=== PATIENT | male | born 1960 | race Two or more races ===

== ENCOUNTER 2025-04-06 08:07 | Inpatient (IN) | payer OTHER ==
[~2025-04-06] VITALS: Ht 180.3 cm; Wt 147.4 kg
[2025-04-06] VITALS (7 sets, daily range): BP systolic 147–153; BP diastolic 82–83; PULSE 63–77; RESP 13–18; TEMP 97.8–98.3; O2SAT 93–97
--- NOTE | 2025-04-06 09:18 | DVH ---
EXAM: XY CHEST PORTABLE HISTORY: dizziness, shortness of breath COMPARISON: None TECHNIQUE: Portable AP view of the chest was performed. FINDINGS: No pneumothorax, consolidative infiltrates, or pulmonary edema. The heart is borderline enlarged. The re is thoracic degenerative disc disease. There is slight midthoracic dextroscoliosis. IMPRESSION: No acute intrathoracic process.
--- NOTE | 2025-04-06 09:32 | DVH ---
EXAM: CT HEAD WITHOUT CONTRAST INDICATION: dizziness TECHNIQUE: CT of the head without intravenous contrast. Radiation Dose : 1. Head: CT Dose: CTDI volume is 62 mGy. Dose-length product is 1115 mGy*cm The dose indicators for CT are the volume Computed Tomography (CT) Dose Index (CTDIvol) and the Dose Length Product (DLP), and are measured in units of mGy and mGy-cm, respectively. These indicators are not patient dose, but values generated from the CT scanner acquisition factors. The report includes radiation exposure data for exposures received during this examination. COMPARISON: None FINDINGS: There is no evidence of acute intracranial hemorrhage, extra-axial collection, mass effect, midline s hift, herniation or hydrocephalus. The ventricles, sulci and cisterns are age appropriate. The reyna-white differentiation is intact. Patchy periventricular and subcortical white matter hypoattenuation is nonspecific but may be related to small vessel ischemic disease. The visualized paranasal sinuses and mastoid air cells are clear. The surrounding soft tissues and osseous structures are unremarkable. IMPRESSION: 1. No acute intracranial abnormality. Radiation optimization: All CT scans at this facility use at least one of these dose optimization kevin hniques: automated exposure control mA and/or kV adjustment per patient size (includes targeted exam s where dose is matched to clinical indication) or iterative reconstruction.
[2025-04-06 10:02] LABS: Basophils # (auto) 0 10 ^3/uL (0-0.2); Basophils % (auto) 0.4 % (0.0-2.0); Eosinophils # (auto) 0.1 10 ^3/uL (0-0.8); Eosinophils % (auto) 1.2 % (0.0-7.0); Hemoglobin 16.5 g/dL (13.5-17.5); Lymphocytes # (auto) 1.1 10 ^3/uL (0.4-5.4); Lymphocytes % (auto) 17.3 % (10.0-50.0); Mean Corpuscular Hemoglobin 28.7 pg (28.0-32.0); Mean Corpuscular Hgb Conc. 34.4 g/dL (32.0-36.0); Mean Corpuscular Volume 83.2 fL (80.0-100.0); Monocytes # (auto) 0.4 10 ^3/uL (0-1.3); Monocytes % (auto) 5.9 % (0.0-12.0); Neutrophils # (auto) 4.7 10 ^3/uL (1.6-8.6); Neutrophils % (auto) 75.2 % (37.0-80.0); Nucleated Red Blood Cells % 0.1 %; Platelet Count (auto) 147 10^3/uL (140-450); Red Blood Cells 5.77 10^6/uL (4.5-5.90); Red Cell Distribution Width 15.2 % (11.8-14.3); White Blood Cell 6.3 10^3/uL (4.4-10.8)
[2025-04-06 10:06] LABS: Urine Bacteria None Seen /hpf (None Seen)
--- NOTE | 2025-04-06 10:14 | ED.PDOC ---
HPI (NEURO) HPI Comments This is a 64 year old male GLORIAA presenting to the ED with chief complaint of chest pain and lightheadedness. Patient reports that he has been experiencing lightheadedness since this morning with associated left sided chest pain, nausea, and diarrhea. Patient states that his lightheadedness has not resolved since waking up. Patient relays that he has history of sleep apnea and previous pancreatic swelling. Patient denies any vomiting, diarrhea, SOB, headache, or blurred vision. Chief Complaint: Dizziness Time Seen by MD: 10:08 Reviewed Notes: Nurses Notes, Managing Director Notes, Medications, Allergies Information Source: Patient, Emergency Med Personnel Mode of Arrival: EMS Severity: Moderate Dizziness/Weakness Severity: Unable to do activities Headache Severity: None Timing: Hours Duration: Since onset Prehospital treatment: None Onset: At rest Circumstances: Spontaneous History of: None Modifying factors: Nothing Past Medical History Past Medical History (Other): Sleep apnea Surgical History: Denies all surgeries Family History Family History: Reviewed,noncontributory to illness Social History Smoker: Non-Smoker Alcohol: Denies ETOH Use Drugs: Denies Drug Use Lives In: Home Constitutional: denies: chills, diaphoresis, fatigue, fever, malaise, sweats, weakness, others EENTM: denies: blurred vision, double vision, ear bleeding, ear discharge, ear drainage, ear pain, ear ringing, eye pain, eye redness, hearing loss, mouth pain, mouth swelling, nasal discharge, nose bleeding, nose congestion, nose pain, photophobia, tearing, throat pain, throat swelling, voice changes, others Respiratory: denies: cough, hemoptysis, orthopnea, SOB at rest, shortness of breath, SOB with excertion, stridor, wheezing, others Cardiovascular: reports: chest pain, lightheadedness; denies: dizzy spells, diaphoresis, Dyspnea on exertion, edema, irregular heart beat, left arm pain, palpitations, PND, syncope, others Gastrointestinal: reports: nausea; denies: abdomen distended, abdominal pain, blood streaked bowels, constipated, diarrhea, dysphagia, difficulty swallowing, hematemesis, melena, poor appetite, poor fluid intake, rectal bleeding, rectal pain, vomiting, others Genitourinary: denies: burning, dysuria, flank pain, frequency, hematuria, incontinence, penile discharge, penile sore, pain, testicle pain, testicle swelling, urgency, others Neurological: denies: dizziness, fainting, headache, left sided numbness, left sided weakness, numbness, paresthesia, pre-existing deficit, right sided numbness, right sided weakness, seizure, speech problems, tingling, tremors, weakness, others Musculoskeletal: denies: back pain, gout, joint pain, joint swelling, muscle pain, muscle stiffness, neck pain, others Integumetry: denies: bruises, change in color, change in hair/nails, dryness, laceration, lesions, lumps, rash, wounds, others Allergic/Immunocompromised: denies: Difficulty Healing, Frequent Infections, Hives, Itching, others Hematologic/Lymphatic: denies: anemia, blood clots, easy bleeding, easy bruising, swollen glands, others Endocrine: denies: excessive hunger, excessive sweating, excessive thirst, excessive urination, flushing, intolerance to cold, intolerance to heat, unexplained weight gain, unexplained weight loss, others Psychiatric: denies: anxiety, bipolar disorder, depression, hopeless, panic disorder, schizophrenia, sleepless, suicidal, others All Other Systems: Reviewed and Negative Physical Exam General Appearance: Obese, Other (Appears uncomfortable) HEENT: Normal ENT Inspection, Pharynx Normal, TMs Normal Neck: Full Range of Motion, Non-Tender, Normal, Normal Inspection Respiratory: Chest Non-Tender, Lungs Clear, No Accessory Muscle Use, No Respiratory Distress, Normal Breath Sounds Cardiovascular: No Edema, No JVD, No Murmur, No Gallop, Normal Peripheral Pulses, Regular Rate/Rhythm Breast Exam: Deferred Gastrointestinal: No Organomegaly, Non Tender, No Pulsatile Mass, Normal Bowel Sounds, Soft Genitalia: Deferred Pelvic: Deferred Rectal: Deferred Extremities: No calf tenderness, Normal capillary refill, Normal inspection, Normal range of motion, Non-tender, No pedal edema Musculoskeletal : Apperance: Normal Neurologic: Alert, security incident response specialist II-XII nml as Tested, No Motor Deficits, Normal Affect, Normal Mood, No Sensory Deficits Cerebellar Function: Normal Reflexes: Normal Skin: Dry, Normal Color, Warm Lymphatic: No Adenopathy Was a procedure done? Was a procedure done?: No Differential Diagnosis (SZ) Seizure: N/A CVA: CVA, Electrolyte Imbalance, Encephalopathy General Weakness: Dehydration, Hypotension, Hypovolemia, TIA Headache: N/A X-Ray, Labs, Meds, VS Vital Signs Date Time Temp Pulse Resp B/P (MAP) Pulse Ox O2 Delivery O2 Flow Rate FiO2 04/06/25 11:08 71 14 133/72 (92) 95 04/06/25 10:03 67 14 155/83 (107) 93 04/06/25 08:45 73 04/06/25 08:33 98.4 67 13 134/65 (88) 93 98.4 04/06/25 08:33 67 13 93 Room Air* 0 21 04/06/25 08:23 98.2 80 18 146/76 (99) 95 98.2 04/06/25 08:08 68 Lab Test 04/06/25 10:35 04/06/25 09:40 04/06/25 09:00 Range/Units Troponin I High Sensitivity 3 L 3 L </=54 ng/L White Blood Count 6.3 4.4-10.8 10^3/uL Red Blood Count 5.77 4.5-5.90 10^6/uL Hemoglobin 16.5 13.5-17.5 g/dL Hematocrit 48.0 41.0-53.0 % Mean Corpuscular Volume 83.2 80.0-100.0 fL Mean Corpuscular Hemoglobin 28.7 28.0-32.0 pg Mean Corpuscular Hemoglobin Concent 34.4 32.0-36.0 g/dL Red Cell Distribution Width 15.2 H 11.8-14.3 % Platelet Count 147 140-450 10^3/uL Mean Platelet Volume 7.9 6.9-10.8 fL Neutrophils (%) (Auto) 75.2 37.0-80.0 % Lymphocytes (%) (Auto) 17.3 10.0-50.0 % Monocytes (%) (Auto) 5.9 0.0-12.0 % Eosinophils (%) (Auto) 1.2 0.0-7.0 % Basophils (%) (Auto) 0.4 0.0-2.0 % Neutrophils # (Auto) 4.7 1.6-8.6 10 ^3/uL Lymphocytes # (Auto) 1.1 0.4-5.4 10 ^3/uL Monocytes # (Auto) 0.4 0-1.3 10 ^3/uL Eosinophils # (Auto) 0.1 0-0.8 10 ^3/uL Basophils # (Auto) 0 0-0.2 10 ^3/uL Nucleated Red Blood Cells 0.1 % Sodium Level 140 136-145 mmol/L Potassium Level 5.6 *H 3.5-5.1 mmol/L Chloride Level 105 98-107 mmol/L Carbon Dioxide Level 30 20-31 mmol/L Anion Gap 5 5-15 Blood Urea Nitrogen 17 9-23 mg/dL Creatinine 1.39 H 0.700-1.30 mg/dL Glomerular Filtration Rate Calc 57 >90 mL/min BUN/Creatinine Ratio 12.2 10.0-20.0 Serum Glucose 113 H 74-106 mg/dL Calcium Level 9.8 8.7-10.4 mg/dL Urine Color Light-yellow Yellow Urine Clarity Clear Clear Urine pH 5.5 5.0-9.0 Urine Specific [place] 1.023 1.001-1.035 Urine Protein Negative Negative Urine Ketones Negative Negative Urine Blood Trace H Negative /uL Urine Nitrite Negative Negative Urine Bilirubin Negative Negative Urine Urobilinogen Normal Negative mg/dL Urine Leukocyte Esterase Negative Negative /uL Urine RBC 1 0 - 3 /hpf Urine Microscopic WBC 1 0-3 /HPF Urine Squamous Epithelial Cells Few <5 /hpf Urine Bacteria None seen None Seen /hpf Urine Mucus Few None Seen Urine Glucose Normal Normal mg/dL Chest XR: FINDINGS: No pneumothorax, consolidative infiltrates, or pulmonary edema. The heart is borderline enlarged. There is thoracic degenerative disc disease. There is slight midthoracic dextroscoliosis. IMPRESSION: No acute intrathoracic process. Head CT: FINDINGS: There is no evidence of acute intracranial hemorrhage, extra-axial collection, mass effect, midline shift, herniation or hydrocephalus. The ventricles, sulci and cisterns are age appropriate. The reyna-white differentiation is intact. Patchy periventricular and subcortical white matter hypoattenuation is nonspecific but may be related to small vessel ischemic disease. The visualized paranasal sinuses and mastoid air cells are clear. The surrounding soft tissues and osseous structures are unremarkable. IMPRESSION: 1. No acute intracranial abnormality. Radiation optimization: All CT scans at this facility use at least one of these dose optimization techniques: automated exposure control mA and/or kV adjustment per patient size (includes targeted exams where dose is matched to clinical indication) or iterative reconstruction. Images Reviewed?: Images reviewed and evaluated by me Time of 1ST Reevaluation: 11:08 Reevaluation 1ST: Unchanged Patient Education/Counseling: Diagnosis, Treatment Family Education/Counseling: Diagnosis, Treatment Additional Information Previous visits reviewed: None The following tests were ordered, and results were reviewed by me: Chest XR, CT Head, CBC, BMP, EKG, Troponin Additional Information was gathered from interviewing the following independent historians: None I reviewed and agreed with the following test results read by other providers: Chest XR, CT Head I discussed treatment and results with medical personnel and: patient and family Comprehensive systems review obtained and negative except for what is stated in the HPI. Departure 1 Departure Time of Disposition: 11:31 (Patient with multiple episodes of near-syncope. Patient found to be hyperkalemic. We will admit patient for further workup and expert consultation.) Impression: Primary Impression: Near syncope Additional Impressions: Hyperkalemia Generalized weakness Shortness of breath Disposition: ADMITTED INPATIENT Admit to: Med Surg Condition: Guarded Critical Care Note Critical Care Time?: Yes Critical care comment: Hyperkalemia Authorized and Performed by: Hasmukh Garrido MD Total critical care time: Approximately 32 minutes Due to a high probability of clinically significant, life threatening deterioration, the patient required my highest level of preparedness to intervene emergently and I personally spent this critical care time directly and personally managing the patient. This critical care time included obtaining a history; examining the patient; pulse oximetry; ordering and review of studies; arranging urgent treatment with development of a management plan; evaluation of patient's response to treatment; frequent reassessment; and, discussions with other providers. This critical care time was performed to assess and manage the high probability of imminent, life-threatening deterioration that could result in multi-organ failure. It was exclusive of separately billable procedures and treating other patients and teaching time. Please see my other sections and the rest of the note for further information on patient assessment and treatment. Stability Stability form required: No Heart Score Heart Score: Heart Score Response (Comments) Value History Highly Suspicious 2 EKG Normal 0 Age 45-64 1 Risk Factors 1 or 2 risk factors 1 Troponin Normal limit 0 Total 4 I personally scribed for HASMUKH GARRIDO MD ([email or web address]) on 04/06/25 at 10:14. Electronically submitted by Ahmet Reese ([email or web address]). HASMUKH GARRIDO MD Apr 06, 2025 10:14
[2025-04-06 10:15] LABS: Chloride 105 mmol/L (98-107); Sodium 140 mmol/L (136-145)
[2025-04-06 10:16] LABS: Anion Gap 5 (5-15); Calcium 9.8 mg/dL (8.7-10.4); Carbon Dioxide 30 mmol/L (20-31)
[2025-04-06 10:18] LABS: Urine Blood TRACE /uL (Negative); Urine Clarity Clear (Clear); Urine Color Light-Yellow (Yellow); Urine Mucus FEW (None Seen); Urine Protein, UAD Negative (Negative); Urine Specific Gravity 1.023 (1.001-1.035); Urine Squamous Epithelial Cell FEW /hpf (<5); Urine Urobilinogen Normal (Negative); Urine WBC 1 /HPF (0-3); Urine pH 5.5 (5.0-9.0)
[2025-04-06 10:21] LABS: BUN/Creatinine Ratio 12.2 (10.0-20.0); Blood Urea Nitrogen 17 mg/dL (9-23)
[2025-04-06 10:23] LABS: Glucose 113 mg/dL (74-106)
[2025-04-06 10:24] LABS: Potassium 5.6 mmol/L (3.5-5.1)
[2025-04-06] MEDS ORDERED: ONDANSETRON HCL 4 MG/2 ML VIAL IV PRN (11:45)
[2025-04-06] MEDS ORDERED: DOCUSATE SOD 100 MG CAP PO PRN (11:45)
[2025-04-06] MEDS ORDERED: HYDROcodone-ACET 5/325MG TAB PO PRN (11:45)
[2025-04-06] MEDS: SODIUM CHLORIDE 0.9% 1,000 ML IV ONE (12:11)
[2025-04-06] MEDS: SODIUM ZIRCONIUM CYCL 10 GM PAK PO ONE (12:11)
[2025-04-06] MEDS: MECLIZINE HCL 25 MG TAB PO PRN (12:19)
[2025-04-06] MEDS: SODIUM CHLOR 0.9% PF (SALINE LOCK) 10ML VIAL/SYR IV SCH (14:14)
--- NOTE | 2025-04-06 14:26 | DVHHP2 ---
History of Present Illness Reason for Visit: Generalized weakness History of Present Illness The patient is a 64-year-old male morbidly obese with past medical history of sleep apnea who presented to [facility] ED with complaint of dizziness. Patient reports he has been experiencing dizziness associated with lightheadedness, left-sided chest pain, nausea, diarrhea, getting worse that prompted this visit. Patient was seen and evaluated in the ED, laboratory data shows WBC 8.3, platelets 147, sodium 140, potassium 5.6, BUN 17, creatinine 1.39, glucose 113, troponin 3, calcium 9.8, blood pressure 133/72, heart rate 72, temperature 98.4 F, O2 saturation 95% on oxygen. Head CT showed no acute i ntracranial abnormality. Please see medication orders section in the computer. On my assessment, patient denied chest pain, no diaphoresis, headache, blurry vision, no shortness of breath, no nausea, no vomiting, no fever, no chills. Patient was admitted for further evaluation and medical management. Past Medical History Sleep apnea Past Surgical History Denies all surgeries Family History Reviewed, noncontributory to the management of this case. Past Social History The patient lives at home, denies smoking, alcohol or illicit drugs abuse. Review of Systems Constitutional: No: Fever, Chills, Sweats, Weakness, Malaise, Other Eyes: No: Pain, Vision change, Conjunctivae inflammation, Eyelid inflammation, Other, Redness ENT: No: Ear pain, Ear discharge, Nose pain, Nose discharge, Nose congestion, Mouth pain, Mouth swelling, Throat pain, Throat swelling, Other Respiratory: No: Cough, Dry, Shortness of breath, SOB with excertion, Wheezing, Hemoptysis, Pleuritic Pain, Sputum, Wheezing, Other Cardiovascular: Chest Pain, Lt Headedness; No: Palpitations, Orthopnea, Paroxysmal Noc. Dyspnea, Edema, Other Gastrointestinal: Nausea; No: Vomiting, Abdominal Pain, Diarrhea, Constipation, Melena, Hematochezia, Other Genitourinary: No Dysuria, No Frequency, No Incontinence, No Hematuria, No Retention, No Other Musculoskeletal: No: other, neck pain, shoulder pain, arm pain, back pain, hand pain, leg pain, foot pain Skin: No: Rash, Lesions, Jaundice, Bruising, Other Neurological: Other (Dizziness); No: Weakness, Numbness, Incoordination, Change in speech, Confusion, Seizures Allergies: Uncoded Allergies: IODINE (Allergy, Unknown, 04/06/25) Medications Current Medications Medications Dose Ordered Sig/Farhat Route Start Time Stop Time Status Last Admin Dose Admin Meclizine HCl 25 mg Q8HPRN PRN PO 04/06/25 11:45 04/06/25 12:19 25 MG Sodium Chloride 10 ml Q8HR IV 04/06/25 14:00 04/06/25 14:14 10 ML Acetaminophen/ Hydrocodone Bitart 1 tab Q4HP PRN PO 04/06/25 11:45 Ondansetron HCl 4 mg Q4HP PRN IV 04/06/25 11:45 Docusate Sodium 100 mg BIDPRN PRN PO 04/06/25 11:45 Acetaminophen 650 mg Q6HP PRN PO 04/06/25 11:45 Exam Vital Signs Vital Signs Date Time Temp Pulse Resp B/P (MAP) Pulse Ox O2 Delivery O2 Flow Rate FiO2 04/06/25 14:11 72 12 177/85 (115) 95 04/06/25 12:44 97.8 97.8 04/06/25 08:33 Room Air* 0 21 General Appearance: Alert, Oriented X3, Cooperative, No acute distress HEENT: Atraumatic, PERRLA, EOMI, Mucous membr. moist/pink Respiratory: Clear to auscultation, Normal air movement Cardiovascular: Regular rate, Normal S1, Normal S2, No murmurs Abdominal: Normal bowel sounds, Soft, No tenderness, No hepatospenomegaly, No masses Extremities: No clubbing, No cyanosis, No edema, Normal pulses, No tenderness/swelling Skin: No rashes, No breakdown, No significant lesion Neuro: Normal speech, Normal tone, Sensation intact, Cranial nerves 3-12 NL, Reflexes 2+, Other (Generalized weakness) Psych/Mental Status: Mental status NL, Mood NL Labs/Xrays Labs Test 04/06/25 13:16 04/06/25 09:40 04/06/25 09:00 Range/Units Troponin I High Sensitivity < 3 L </=54 ng/L White Blood Count 6.3 4.4-10.8 10^3/uL Red Blood Count 5.77 4.5-5.90 10^6/uL Hemoglobin 16.5 13.5-17.5 g/dL Hematocrit 48.0 41.0-53.0 % Mean Corpuscular Volume 83.2 80.0-100.0 fL Mean Corpuscular Hemoglobin 28.7 28.0-32.0 pg Mean Corpuscular Hemoglobin Concent 34.4 32.0-36.0 g/dL Red Cell Distribution Width 15.2 H 11.8-14.3 % Platelet Count 147 140-450 10^3/uL Mean Platelet Volume 7.9 6.9-10.8 fL Neutrophils (%) (Auto) 75.2 37.0-80.0 % Lymphocytes (%) (Auto) 17.3 10.0-50.0 % Monocytes (%) (Auto) 5.9 0.0-12.0 % Eosinophils (%) (Auto) 1.2 0.0-7.0 % Basophils (%) (Auto) 0.4 0.0-2.0 % Neutrophils # (Auto) 4.7 1.6-8.6 10 ^3/uL Lymphocytes # (Auto) 1.1 0.4-5.4 10 ^3/uL Monocytes # (Auto) 0.4 0-1.3 10 ^3/uL Eosinophils # (Auto) 0.1 0-0.8 10 ^3/uL Basophils # (Auto) 0 0-0.2 10 ^3/uL Nucleated Red Blood Cells 0.1 % Sodium Level 140 136-145 mmol/L Potassium Level 5.6 *H 3.5-5.1 mmol/L Chloride Level 105 98-107 mmol/L Carbon Dioxide Level 30 20-31 mmol/L Anion Gap 5 5-15 Blood Urea Nitrogen 17 9-23 mg/dL Creatinine 1.39 H 0.700-1.30 mg/dL Glomerular Filtration Rate Calc 57 >90 mL/min BUN/Creatinine Ratio 12.2 10.0-20.0 Serum Glucose 113 H 74-106 mg/dL Calcium Level 9.8 8.7-10.4 mg/dL Urine Color Light-yellow Yellow Urine Clarity Clear Clear Urine pH 5.5 5.0-9.0 Urine Specific [place] 1.023 1.001-1.035 Urine Protein Negative Negative Urine Ketones Negative Negative Urine Blood Trace H Negative /uL Urine Nitrite Negative Negative Urine Bilirubin Negative Negative Urine Urobilinogen Normal Negative mg/dL Urine Leukocyte Esterase Negative Negative /uL Urine RBC 1 0 - 3 /hpf Urine Microscopic WBC 1 0-3 /HPF Urine Squamous Epithelial Cells Few <5 /hpf Urine Bacteria None seen None Seen /hpf Urine Mucus Few None Seen Urine Glucose Normal Normal mg/dL PATIENT: GEREMIAS GILLIAMOACCT: [id number] UNIT: [id number] : 1960 LOC: ER ROOM / BED: / AGE / SEX: 64 / M ADM STATUS: REG ER SERVICE [id number] ORDERING PHYSICIAN: HASMUKH FRANCISCO MD PROCEDURE(s): HWOCT - HEAD WITHOUT CONTRAST REASON: dizziness ORDER NUMBER(s): [id number], ACCESSION NUMBER(s): [id number] EXAM: CT HEAD WITHOUT CONTRAST INDICATION: dizziness TECHNIQUE: CT of the head without intravenous contrast. Radiation Dose: 1. Head: CT Dose: CTDI volume is 62 mGy. Dose-length product is 1115 mGy*cm The dose indicators for CT are the volume Computed Tomography (CT) Dose Index (CTDIvol) and the Dose Length Product (DLP), and are measured in units of mGy and mGy-cm, respectively. These indicators are not patient dose, but values ge nerated from the CT scanner acquisition factors. The report includes radiation exposure data for exposures received during this examination. COMPARISON: None FINDINGS: There is no evidence of acute intracranial hemorrhage, extra-axial collection, mass effect, midline shift, herniation or hydrocephalus. The ventricles, sulci and cisterns are age appropriate. The reyna-white differentiation is intact. Patchy periventricular and subcortical white matter hypoattenuation is nonspecific but may be related to small vessel ischemic disease. The visualized paranasal sinuses and mastoid air cells are clear. The surrounding soft tissues and osseous structures are unremarkable. IMPRESSION: 1. No acute intracranial abnormality. ORDERING PHYSICIAN: HASMUKH FRANCISCO MD PROCEDURE(s): CXRP - CHEST PORTABLE REASON: dizziness ORDER NUMBER(s): [id number], ACCESSION NUMBER(s): [id number] EXAM: XY CHEST PORTABLE HISTORY: dizziness, shortness of breath COMPARISON: None TECHNIQUE: Portable AP view of the chest was performed. FINDINGS: No pneumothorax, consolidative infiltrates, or pulmonary edema. The heart is borderline enlarged. There is thoracic degenerative disc disease. There is slight midthoracic dextroscoliosis. IMPRESSION: No acute intrathoracic process. Assessment/Plan Assessment/Plan Near syncope Hyperkalemia Generalized weakness Acute respiratory distress Plan 1. Admit to telemetry unit 2. Breathing treatment 3. Pain control management 4. Management of fluids and electrolytes 5. Consultation for hospitalist 6. Diagnostic tests head CT 7. DVT prophylaxis-on SCDs 8. Repeat labs CBC, CMP in a.m. 9. Continue with current medical management 10. Treatment plan discussed with patient and RN. Patient verbalized understanding. Plan discussed with: Patient, Other (RN) My Orders Orders - CASSIDY GAMEZ DNP Procedure Category Date Status Time Meclizine Tablet PHA 04/06/25 In Process (Antivert Tablet) 11:45 Allergies YI 04/06/25 In Process 11:43 Code Status CODE 04/06/25 Transmitted 11:43 Sodium Chloride Lock PHA 04/06/25 In Process (Saline Lock Ns) 14:00 Oxygen Per Hour RT 04/06/25 Transmitted 11:43 Hydrocodone-Acet PHA 04/06/25 In Process 5/325mg Tab ([place] 11:45 Ondansetron Hcl PHA 04/06/25 In Process (Zofran) 11:45 Docusate Sodium PHA 04/06/25 In Process Capsule (Colace 11:45 Fall Risk Precautions YI 04/06/[address] 11:43 Complete Blood Count LAB 04/07/25 Verified 04:00 Comprehensive LAB 04/07/25 Verified Metabolic Panel 04:00 Cardiac DIET 04/06/25 Transmitted Diet-2gna,Lofat,Lochol Lunch Condition: Serious YI 04/06/25 In Process 11:43 Acetaminophen Tablet PHA 04/06/25 In Process (Tylenol Tablet) 11:45 Maintain Bed Rest YI 04/06/25 In Process 11:43 Sequential YI 04/06/25 In Process Compression Device Problem List: (1) Near syncope (2) Hyperkalemia (3) Generalized weakness (4) Acute respiratory distress Date of Service: Apr 06, 2025 Billing Provider: CASSIDY GAMEZ DNP Common Visit Codes: [id number] INP/OBS CARE (HIGH) CASSIDY GAMEZ DNP Apr 06, 2025 14:26
[2025-04-06] MEDS ORDERED: NITROGLYCERIN 0.4 MG SL TAB SL PRN (14:30)
[2025-04-06] MEDS ORDERED: MORPHINE SULFATE INJ 2 MG/ml SYRG IV PRN (14:30)
[2025-04-06] MEDS ORDERED: ASPI325T6 PO (20:40)
[2025-04-07] VITALS (8 sets, daily range): BP systolic 137–148; BP diastolic 77–102; PULSE 65–73; RESP 15–18; TEMP 97–98.2; O2SAT 95–97
[2025-04-07 06:33] LABS: Basophils # (auto) 0 10 ^3/uL (0-0.2); Basophils % (auto) 0.3 % (0.0-2.0); Eosinophils # (auto) 0.2 10 ^3/uL (0-0.8); Hematocrit 47.4 % (41.0-53.0); Hemoglobin 16.4 g/dL (13.5-17.5); Lymphocytes # (auto) 1.3 10 ^3/uL (0.4-5.4); Lymphocytes % (auto) 22.4 % (10.0-50.0); Mean Corpuscular Hemoglobin 28.7 pg (28.0-32.0); Mean Corpuscular Hgb Conc. 34.6 g/dL (32.0-36.0); Monocytes # (auto) 0.4 10 ^3/uL (0-1.3); Monocytes % (auto) 6.2 % (0.0-12.0); Neutrophils % (auto) 68.1 % (37.0-80.0); Nucleated Red Blood Cells % 0.2 %; Platelet Count (auto) 143 10^3/uL (140-450); Red Blood Cells 5.71 10^6/uL (4.5-5.90); Red Cell Distribution Width 15.1 % (11.8-14.3); White Blood Cell 5.9 10^3/uL (4.4-10.8)
[2025-04-07 06:56] LABS: Alanine Aminotransferase 28 U/L (7-40); Anion Gap 10 (5-15); Carbon Dioxide 26 mmol/L (20-31); Chloride 103 mmol/L (98-107); Potassium 4.1 mmol/L (3.5-5.1); Sodium 139 mmol/L (136-145)
[2025-04-07 06:57] LABS: BUN/Creatinine Ratio 12.3 (10.0-20.0); Blood Urea Nitrogen 13 mg/dL (9-23)
[2025-04-07 06:58] LABS: Total Protein 6.6 g/dL (5.7-8.2)
[2025-04-07 06:59] LABS: Albumin 4.2 g/dL (3.2-4.8); Aspartate Aminotransferase 19 U/L (13-40); Glucose 107 mg/dL (74-106)
[2025-04-07 07:00] LABS: Bilirubin, Total 0.8 mg/dL (0.2-1.0)
[2025-04-07 07:46] LABS: Alkaline Phosphatase 96 U/L (46-116)
--- NOTE | 2025-04-07 10:49 | ECG ---
[facility] Test Date: 2025-04-06 Test Time: 08:08:35 Pat Name: LONNIE GILLIAM Department: ED Room: 0219T A Gender: M Conservation Scientist: DORIS : 1960 Requested By: HASMUKH FRANCISCO Order Number: [id number] Reading MD: Desmond Tamez Measurements Intervals [place] Rate: 68 P: 17 [place]: 163 QRS: 16 QRSD: 95 T: 30 QT: 404 QTc: 430 Interpretive Statements Sinus rhythm Electronically Signed On 04-08-2025 9:25:17 PDT by Desmond Tamez Please click the below link to view image of tracing.
--- NOTE | 2025-04-07 12:51 | DVHPN2 ---
Reviewed: Care Plan, H&P, Labs, Medications, Previous Orders, Radiology Changes from previous H/P or p: No Changes Eyes: No Pain, No Vision change, No Conjunctivae inflammation, No Eyelid inflammation, No Other, No Redness ENT: No Ear pain, No Ear discharge, No Nose pain, No Nose discharge, No Nose congestion, No Mouth pain, No Mouth swelling, No Throat pain, No Throat swelling, No Other Cardiovascular: Chest Pain; No Palpitations, No Orthopnea, No Paroxysmal Noc. Dyspnea, No Edema; Lt Headedness; No Other Respiratory: No Cough, No Dry, No Shortness of breath, No SOB with excertion, No Wheezing, No Hemoptysis, No Pleuritic Pain, No Sputum, No Other Gastrointestinal: Nausea; No Vomiting, No Abdominal Pain, No Diarrhea, No Constipation, No Melena, No Hematochezia, No Other Genitourinary: No Dysuria, No Frequency, No Incontinence, No Hematuria, No Retention, No Other Musculoskeletal: No other, No neck pain, No shoulder pain, No arm pain, No back pain, No hand pain, No leg pain, No foot pain Skin: No Rash, No Lesions, No Jaundice, No Bruising, No Other Objective Vitals Vital Signs Date Time Temp Pulse Resp B/P (MAP) Pulse Ox O2 Delivery O2 Flow Rate FiO2 04/07/25 09:00 97.0 72 17 145/102 (116) 95 97.0 04/07/25 08:10 Room Air* 0 21 Intake/Output Intake and Output 04/07/25 07:00 Intake Total 1750 ml Output Total 1600 ml Balance 150 ml Intake Oral 750 ml IV Total 1000 ml Output Urine Total 1600 ml # Voids 2 Medications Current Medications Medications Dose Ordered Sig/Farhat Route Start Time Stop Time Status Last Admin Dose Admin Meclizine HCl 25 mg Q8HPRN PRN PO 04/06/25 11:45 04/06/25 12:19 25 MG Sodium Chloride 10 ml Q8HR IV 04/06/25 14:00 04/07/25 06:30 10 ML Acetaminophen/ Hydrocodone Bitart 1 tab Q4HP PRN PO 04/06/25 11:45 Ondansetron HCl 4 mg Q4HP PRN IV 04/06/25 11:45 Docusate Sodium 100 mg BIDPRN PRN PO 04/06/25 11:45 Acetaminophen 650 mg Q6HP PRN PO 04/06/25 11:45 Nitroglycerin 0.4 mg Q5MINP PRN SL 04/06/25 14:30 Morphine Sulfate 2 mg Q30M PRN IV 04/06/25 14:30 Laboratory Results Laboratory Tests 04/07/25 05:43 Chemistry Test 04/07/25 05:43 Albumin 4.2 g/dL (3.2-4.8) Calcium Level 9.0 mg/dL (8.7-10.4) Total Protein 6.6 g/dL (5.7-8.2) LFT Test 04/07/25 05:43 Alanine Aminotransferase (ALT) 28 U/L (7-40) Alkaline Phosphatase 96 U/L (46-116) Aspartate Amino Transferase (AST) 19 U/L (13-40) Total Bilirubin 0.8 mg/dL (0.2-1.0) Urinalysis Test 04/06/25 09:00 Urine Color Light-yellow (Yellow) Urine Clarity Clear (Clear) Urine pH 5.5 (5.0-9.0) Urine Specific [place] 1.023 (1.001-1.035) Urine Protein Negative (Negative) Urine Ketones Negative (Negative) Urine Blood Trace /uL (Negative) H Urine Nitrite Negative (Negative) Urine Bilirubin Negative (Negative) Urine Urobilinogen Normal mg/dL (Negative) Urine Leukocyte Esterase Negative /uL (Negative) Urine RBC 1 /hpf (0 - 3) Urine Microscopic WBC 1 /HPF (0-3) Urine Squamous Epithelial Cells Few /hpf (<5) Urine Bacteria None seen /hpf (None Seen) Urine Mucus Few (None Seen) Urine Glucose Normal mg/dL (Normal) Labs and/or images reviewed: Labs reviewed by me, Image(s) reviewed by me Assessment/Plan Assessment/Plan Near syncope CT head negative, Neurology consult Hyperkalemia resolved Generalized weakness Acute respiratory distress chest x-ray normal History of sleep apnea Plan discussed with: Patient Date of Service: Apr 07, 2025 Billing Provider: HANNA RAYMOND MD Common Visit Codes: [id number] INP/OBS CARE(HIGH) HANNA RAYMOND MD Apr 07, 2025 12:51
[2025-04-07] MEDS: METOPROLOL TARTRATE 50 MG TAB PO ONE (14:24)
--- NOTE | 2025-04-07 21:22 | DVHINCON2 ---
Date of service: Apr 07, [address] Beyer Reason for Consultation Syncope History of Present Illness Mr. Winston is a 64 years old right-handed gentleman with a history of hypertension, diabetes, sleep apnea, obesity, he was admitted to the [facility] on 04/06/2025 for dizziness. At this time, he is alert and fully oriented, he provided the following history For 1-2 weeks of time, he has spells of dizziness/lightheadedness, unsteadiness, triggered by getting up from bed or sitting position, there is no associated altered mental status. The patient reports good appetite, good hydration, no chills, fever or other acute illness recently For 1-2 years' time, the patient has spells of intense dizziness where since spinning around him, with a feeling of unsteadiness lasted for sec of time, with lingering unsteadiness for a longer period of time, this is typically triggered by getting up, lying down, reason or bending the head. Urinalysis, 04/06/2025: Unremarkable CBC, 04/07/2025: Unremarkable CMP, 04/07/2025: Unremarkable CT head, 04/06/2025:No acute intracranial abnormality Past Medical History Hypertension, diabetes, sleep apnea on CPAP, obesity Past Surgical History Hernia repair, right arm injury repair Family History: Asthma G8 FATHER Family History Diabetes, asthma Social History He has not tobacco smoke, he denies a history of alcohol or recreational substance abuse Allergies: Coded Allergies: Iodide (Verified Allergy, Unknown, 04/07/25) Uncoded Allergies: IODINE (Allergy, Unknown, 04/06/25) Home Meds Reported Medications Aspirin (Aspirin) 325 Mg Tab, 81 MG PO DAILY for 30 Days, MG 04/06/25 Current Medications Current Medications Medications (Trade) Dose Ordered Sig/Farhat Route PRN Reason Start Time Stop Time Status Last Admin Metoprolol Tartrate (Lopressor Tablet) 50 mg BID PO 04/07/25 22:00 Review of Systems As above, the other systems are negative Vital Signs Vital Signs Date Time Temp Pulse Resp B/P (MAP) Pulse Ox O2 Delivery O2 Flow Rate FiO2 04/07/25 17:00 97.2 65 15 140/77 (98) 97 97.2 04/07/25 08:10 Room Air* 0 21 Physical Exam GENERAL EXAM: General: the patient is well developed and nourished. No acute distress. HEENT: Normocephalic, neck is supple, no carotid bruits. No mass. RESPIRATORY: Normal respiratory effort with symmetrical lung expansion. Lungs clear to auscultation. CARDIOVASCULAR: Regular rate and rhythm with no murmurs. S1, S2. ABDOMEN: Soft, nontender, normal bowel sound NEUROLOGICAL: MENTAL STATUS: Awake and alert. Oriented to person, place, time and general circumstances. Able to give personal history SPEECH, LANGUAGE, HIGHER CORTICAL FUNCTION: no aphasia or dysathria. CRANIAL NERVES: #2: Intact visual stevenson to confrontation. The optic discs were sharp #3,4,6: Pupils are equal, round and reactive. EOMs full and conjugate. No nystagmus. #5: Facial sensation intact in all three divisions bilaterally. Mandibular strength intact. #7: Facial muscles symmetrical and strength intact. #8: Hearing grossly normal to voice. #9,10: Uvula and soft palate rise in the midline. Swallow and voice are normal. #11: Trapezius and sternomastoid strength intact bilaterally. #12: Tongue midline. No fasciculations or atrophy. SENSATION: Sensation to touch and pinprick is normal. MOTOR: Normal tone in the upper and lower extremity. Normal muscle bulk. No fasciculations. No abnormal movements or posturing. Muscle strength of the major groups in the upper extremities is 5/5. Muscle strength of the major groups in the lower extremities is 5/5. REFLEXES: Deep tendon reflexes normal and symmetrical. No pathological reflexes. CEREBELLAR/COORDINATION: Finger to nose and heel to pulido are normal b ilaterally. GAIT/STATION: deferred. Labs/Diagnostic Data Labs Test 04/07/25 05:43 04/06/25 13:16 04/06/25 09:00 Range/Units White Blood Count 5.9 4.4-10.8 10^3/uL Red Blood Count 5.71 4.5-5.90 10^6/uL Hemoglobin 16.4 13.5-17.5 g/dL Hematocrit 47.4 41.0-53.0 % Mean Corpuscular Volume 83.0 80.0-100.0 fL Mean Corpuscular Hemoglobin 28.7 28.0-32.0 pg Mean Corpuscular Hemoglobin Concent 34.6 32.0-36.0 g/dL Red Cell Distribution Width 15.1 H 11.8-14.3 % Platelet Count 143 140-450 10^3/uL Mean Platelet Volume 7.9 6.9-10.8 fL Neutrophils (%) (Auto) 68.1 37.0-80.0 % Lymphocytes (%) (Auto) 22.4 10.0-50.0 % Monocytes (%) (Auto) 6.2 0.0-12.0 % Eosinophils (%) (Auto) 3.0 0.0-7.0 % Basophils (%) (Auto) 0.3 0.0-2.0 % Neutrophils # (Auto) 4.0 1.6-8.6 10 ^3/uL Lymphocytes # (Auto) 1.3 0.4-5.4 10 ^3/uL Monocytes # (Auto) 0.4 0-1.3 10 ^3/uL Eosinophils # (Auto) 0.2 0-0.8 10 ^3/uL Basophils # (Auto) 0 0-0.2 10 ^3/uL Nucleated Red Blood Cells 0.2 % Sodium Level 139 136-145 mmol/L Potassium Level 4.1 3.5-5.1 mmol/L Chloride Level 103 98-107 mmol/L Carbon Dioxide Level 26 20-31 mmol/L Anion Gap 10 5-15 Blood Urea Nitrogen 13 9-23 mg/dL Creatinine 1.06 0.700-1.30 mg/dL Glomerular Filtration Rate Calc 78 >90 mL/min BUN/Creatinine Ratio 12.3 10.0-20.0 Serum Glucose 107 H 74-106 mg/dL Calcium Level 9.0 8.7-10.4 mg/dL Total Bilirubin 0.8 0.2-1.0 mg/dL Aspartate Amino Transferase (AST) 19 13-40 U/L Alanine Aminotransferase (ALT) 28 7-40 U/L Alkaline Phosphatase 96 46-116 U/L Total Protein 6.6 5.7-8.2 g/dL Albumin 4.2 3.2-4.8 g/dL Troponin I High Sensitivity < 3 L </=54 ng/L Urine Color Light-yellow Yellow Urine Clarity Clear Clear Urine pH 5.5 5.0-9.0 Urine Specific [place] 1.023 1.001-1.035 Urine Protein Negative Negative Urine Ketones Negative Negative Urine Blood Trace H Negative /uL Urine Nitrite Negative Negative Urine Bilirubin Negative Negative Urine Urobilinogen Normal Negative mg/dL Urine Leukocyte Esterase Negative Negative /uL Urine RBC 1 0 - 3 /hpf Urine Microscopic WBC 1 0-3 /HPF Urine Squamous Epithelial Cells Few <5 /hpf Urine Bacteria None seen None Seen /hpf Urine Mucus Few None Seen Urine Glucose Normal Normal mg/dL Assessment Dizziness, unsteadiness Likely presyncopal event Rule out cardiac etiology Rule out intracranial acute abnormality Vertigo Likely benign paroxysmal positional vertigo Sleep apnea Plan/Recommendation Monitoring Supportive treatment Telemetry Orthostatic vitals MR brain scan Cardiology consultation Syncopal precautions discussed CPAP in the hospital Further address benign paroxysmal positional vertigo as outpatient Progress: Poor This medical document was created using an electronic medical record system with [employer] dictation system. Although this document has been carefully reviewed, there may still be some phonetic and typographical errors. These areas are purely typographical due to imperfections of the software programs, and do not reflect any compromise in the patient's medical care. Plan discussed with: Patient, Other AMANDA STODDARD MD Apr 07, 2025 21:22
[2025-04-07] MEDS: METOPROLOL TARTRATE 50 MG TAB PO SCH (21:38)
[2025-04-07] MEDS ORDERED: LORazepam 2MG/ML-1ML VIAL IV PRN (21:45)
[2025-04-08] VITALS (8 sets, daily range): BP systolic 107–150; BP diastolic 63–91; PULSE 58–70; RESP 16–19; TEMP 97–98.1; O2SAT 95–96
--- NOTE | 2025-04-08 08:48 | DVHPN2 ---
Reviewed: Care Plan, H&P, Labs, Medications, Previous Orders, Radiology Changes from previous H/P or p: No Changes Eyes: No Pain, No Vision change, No Conjunctivae inflammation, No Eyelid inflammation, No Other, No Redness ENT: No Ear pain, No Ear discharge, No Nose pain, No Nose discharge, No Nose congestion, No Mouth pain, No Mouth swelling, No Throat pain, No Throat swelling, No Other Cardiovascular: Chest Pain; No Palpitations, No Orthopnea, No Paroxysmal Noc. Dyspnea, No Edema; Lt Headedness; No Other Respiratory: No Cough, No Dry, No Shortness of breath, No SOB with excertion, No Wheezing, No Hemoptysis, No Pleuritic Pain, No Sputum, No Other Gastrointestinal: Nausea; No Vomiting, No Abdominal Pain, No Diarrhea, No Constipation, No Melena, No Hematochezia, No Other Genitourinary: No Dysuria, No Frequency, No Incontinence, No Hematuria, No Retention, No Other Musculoskeletal: No other, No neck pain, No shoulder pain, No arm pain, No back pain, No hand pain, No leg pain, No foot pain Skin: No Rash, No Lesions, No Jaundice, No Bruising, No Other Objective Vitals Vital Signs Date Time Temp Pulse Resp B/P (MAP) Pulse Ox O2 Delivery O2 Flow Rate FiO2 04/08/25 05:00 98.1 61 18 117/77 (90) 95 98.1 127/83 (98) 138/81 (100) 04/07/25 20:00 Room Air* 0 21 Intake/Output Intake and Output 04/08/25 07:00 Intake Total 1750 ml Balance 1750 ml Intake Oral 1750 ml # Voids 9 # Bowel Movements 1 Medications Current Medications Medications Dose Ordered Sig/Farhat Route Start Time Stop Time Status Last Admin Dose Admin Meclizine HCl 25 mg Q8HPRN PRN PO 04/06/25 11:45 04/06/25 12:19 25 MG Sodium Chloride 10 ml Q8HR IV 04/06/25 14:00 04/08/25 06:06 10 ML Acetaminophen/ Hydrocodone Bitart 1 tab Q4HP PRN PO 04/06/25 11:45 Ondansetron HCl 4 mg Q4HP PRN IV 04/06/25 11:45 Docusate Sodium 100 mg BIDPRN PRN PO 04/06/25 11:45 Acetaminophen 650 mg Q6HP PRN PO 04/06/25 11:45 Nitroglycerin 0.4 mg Q5MINP PRN SL 04/06/25 14:30 Morphine Sulfate 2 mg Q30M PRN IV 04/06/25 14:30 Metoprolol Tartrate 50 mg BID PO 04/07/25 22:00 04/07/25 21:38 50 MG Lorazepam 1 mg ONCE PRN IV 04/07/25 21:45 Laboratory Results Laboratory Tests 04/07/25 05:43 Urinalysis Test 04/06/25 09:00 Urine Color Light-yellow (Yellow) Urine Clarity Clear (Clear) Urine pH 5.5 (5.0-9.0) Urine Specific [place] 1.023 (1.001-1.035) Urine Protein Negative (Negative) Urine Ketones Negative (Negative) Urine Blood Trace /uL (Negative) H Urine Nitrite Negative (Negative) Urine Bilirubin Negative (Negative) Urine Urobilinogen Normal mg/dL (Negative) Urine Leukocyte Esterase Negative /uL (Negative) Urine RBC 1 /hpf (0 - 3) Urine Microscopic WBC 1 /HPF (0-3) Urine Squamous Epithelial Cells Few /hpf (<5) Urine Bacteria None seen /hpf (None Seen) Urine Mucus Few (None Seen) Urine Glucose Normal mg/dL (Normal) Labs and/or images reviewed: Labs reviewed by me, Image(s) reviewed by me Assessment/Plan Assessment/Plan Near syncope CT head negative, Neurology consult treated, cardiology consult placed, echocardiogram ordered Hyperkalemia resolved Generalized weakness Acute respiratory distress chest x-ray normal History of sleep apnea Plan discussed with: Patient My Orders Orders - HANNA RAYMOND MD Procedure Category Date Status Time * Neurology Consult CONS 04/07/25 Transmitted 12:52 Metoprolol Tartrate PHA 04/07/25 In Process Tablet (Lopressor Ta 22:00 Date of Service: Apr 08, 2025 Billing Provider: HANNA RAYMOND MD Common Visit Codes: [id number] INP/OBS CARE(HIGH) HANNA RAYMOND MD Apr 08, 2025 08:48
--- NOTE | 2025-04-08 10:38 | DVH ---
Carotid Duplex Date: 04/08/2025 09:39 AM Clinical History: syncope Comparison: None Technique: Duplex Doppler evaluation of the extracranial carotid and vertebral arteries including col or Doppler and spectral/pulsed waveform analysis was performed. Findings: RIGHT SIDE: The peak systolic velocities are 73 cm/s in the distal CCA and 107 cm/s in the proximal ICA.The ICA/C CA ratio is less than 2. The external carotid artery is patent with peak systolic velocity of 81 cm/s proximally. There is appropriate antegrade flow in the right vertebral artery. LEFT SIDE: The peak systolic velocities are 112 cm/s in the distal CCA and 83 cm/s in the proximal ICA.. The ICA /CCA ratio is less than 1. The external carotid artery is patent with peak systolic velocity of 78 cm/s proximally. There is appropriate antegrade flow in the left vertebral artery. IMPRESSION: No hemodynamically significant stenosis noted in the right carotid system. No hemodynamically significant stenosis noted in the left carotid system. Reference: Radiology 2003; 229:[id number]
--- NOTE | 2025-04-08 10:44 | DVHINCON2 ---
Date Seen: Apr 08, 2025 Referring Physician MD Pepito Reason for Consultation Syncope History of Present Illness This is a 64-year-old male patient who presents to emergency room with multiple chief complaints. The patient reports that he has been experiencing dizziness, chest pain, and shortness of breath. He describes the chest pain as unprovoked, intermittent, cramping in nature, and predominantly left-sided with some radiation across to the right side of his chest. Associated symptoms include shortness of breath. The patient reports that he has been experiencing dizziness for many years in which he was previously diagnosed with vertigo. He states that the dizziness has worsened over the last two weeks, prompting him to come to the emergency room for further evaluation. Initial twelve lead electrocardiogram reveals normal sinus rhythm with PACs and nonspecific ST segment change in lead III. Serial troponin levels have been negative. Significant past medical history includes hypertension, obstructive sleep apnea with CPAP use at night, vertigo, fatty liver disease, kidney stones, and morbid obesity. Past Medical History Past medical history reviewed. No other significant than mentioned above. Past Surgical History Hernia repair Lithotripsy Family History: Asthma G8 FATHER Family History Family history reviewed. Social History Denies the use of tobacco, alcohol or illicit drugs. Allergies: Coded Allergies: Iodide (Verified Allergy, Unknown, 04/07/25) Uncoded Allergies: IODINE (Allergy, Unknown, 04/06/25) Home Meds Reported Medications Aspirin (Aspirin) 325 Mg Tab, 81 MG PO DAILY for 30 Days, MG 04/06/25 Home Meds Home medications reviewed. Current Medications Current Medications Medications (Trade) Dose Ordered Sig/Farhat Route PRN Reason Start Time Stop Time Status Last Admin Metoprolol Tartrate (Lopressor Tablet) 50 mg BID PO 04/07/25 22:00 04/08/25 10:01 Lorazepam (Ativan Inj) 1 mg ONCE PRN IV MRI 04/07/25 21:45 Review of Systems Constitutional: No symptom reported Ears, Nose, & Throat: No symptom reported Eyes: No symptom reported Neurological: Dizziness Pulmonary/Respiratory: Shortness of breath Cardiovascular: Syncope Gastrointestinal: No symptom reported Genitourinary: No symptom reported Musculoskeletal: No symptom reported Skin: No symptom reported Psychiatric: No symptom reported Endocrine: No symptom reported Hematologic/Lymphatic: No symptom reported Vital Signs Vital Signs Date Time Temp Pulse Resp B/P (MAP) Pulse Ox O2 Delivery O2 Flow Rate FiO2 04/08/25 10:01 70 150/91 04/08/25 09:13 97.3 16 96 97.3 04/07/25 20:00 Room Air* 0 21 Physical Exam General Appearance: Cooperative. Morbidly obese Pulmonary/Respiratory: Clear, bilateral breaths sounds. Cardiovascular/Chest: Regular rate and rhythm. Peripheral Pulses: 2+ Radial (R). 2+ Radial (L). 2+ Pedal (R). 2+ Pedal (L) Abdominal Exam: Normal bowel sounds. Ankle Exam: Negative ankle edema Lower extremities: Negative lower extremity edema Neuro/Mental Status: A/OX4, coherent. Thoughts/Psych: Normal thought pattern. Appropriate mood and affect. Good judgment and insight. Appearance: No acute distress. Skin Exam: Normal inspection. Normal color. Warm and dry. Labs/Diagnostic Data Labs Test 04/07/25 05:43 04/06/25 13:16 04/06/25 09:00 Range/Units White Blood Count 5.9 4.4-10.8 10^3/uL Red Blood Count 5.71 4.5-5.90 10^6/uL Hemoglobin 16.4 13.5-17.5 g/dL Hematocrit 47.4 41.0-53.0 % Mean Corpuscular Volume 83.0 80.0-100.0 fL Mean Corpuscular Hemoglobin 28.7 28.0-32.0 pg Mean Corpuscular Hemoglobin Concent 34.6 32.0-36.0 g/dL Red Cell Distribution Width 15.1 H 11.8-14.3 % Platelet Count 143 140-450 10^3/uL Mean Platelet Volume 7.9 6.9-10.8 fL Neutrophils (%) (Auto) 68.1 37.0-80.0 % Lymphocytes (%) (Auto) 22.4 10.0-50.0 % Monocytes (%) (Auto) 6.2 0.0-12.0 % Eosinophils (%) (Auto) 3.0 0.0-7.0 % Basophils (%) (Auto) 0.3 0.0-2.0 % Neutrophils # (Auto) 4.0 1.6-8.6 10 ^3/uL Lymphocytes # (Auto) 1.3 0.4-5.4 10 ^3/uL Monocytes # (Auto) 0.4 0-1.3 10 ^3/uL Eosinophils # (Auto) 0.2 0-0.8 10 ^3/uL Basophils # (Auto) 0 0-0.2 10 ^3/uL Nucleated Red Blood Cells 0.2 % Sodium Level 139 136-145 mmol/L Potassium Level 4.1 3.5-5.1 mmol/L Chloride Level 103 98-107 mmol/L Carbon Dioxide Level 26 20-31 mmol/L Anion Gap 10 5-15 Blood Urea Nitrogen 13 9-23 mg/dL Creatinine 1.06 0.700-1.30 mg/dL Glomerular Filtration Rate Calc 78 >90 mL/min BUN/Creatinine Ratio 12.3 10.0-20.0 Serum Glucose 107 H 74-106 mg/dL Calcium Level 9.0 8.7-10.4 mg/dL Total Bilirubin 0.8 0.2-1.0 mg/dL Aspartate Amino Transferase (AST) 19 13-40 U/L Alanine Aminotransferase (ALT) 28 7-40 U/L Alkaline Phosphatase 96 46-116 U/L Total Protein 6.6 5.7-8.2 g/dL Albumin 4.2 3.2-4.8 g/dL Troponin I High Sensitivity < 3 L </=54 ng/L Urine Color Light-yellow Yellow Urine Clarity Clear Clear Urine pH 5.5 5.0-9.0 Urine Specific [place] 1.023 1.001-1.035 Urine Protein Negative Negative Urine Ketones Negative Negative Urine Blood Trace H Negative /uL Urine Nitrite Negative Negative Urine Bilirubin Negative Negative Urine Urobilinogen Normal Negative mg/dL Urine Leukocyte Esterase Negative Negative /uL Urine RBC 1 0 - 3 /hpf Urine Microscopic WBC 1 0-3 /HPF Urine Squamous Epithelial Cells Few <5 /hpf Urine Bacteria None seen None Seen /hpf Urine Mucus Few None Seen Urine Glucose Normal Normal mg/dL Assessment Syncope, rule out cardiac etiology Chest pain, rule out coronary ischemia Rule out structural heart disease Hypertension Dyslipidemia, newly diagnosed Hyperkalemia, resolved Morbid obesity Plan/Recommendation We will continue with following plan/recommendations (Dr. Tamez): * Transthoracic echocardiogram to evaluate cardiac function * Chest pain protocol * HEART score: 4 points (moderate score) * Bilateral carotid ultrasound: No hemodynamically significant stenosis in right or left carotid system * Orthostatic vitals * Close Cardiac surveillance * Nuclear stress test Given the patient's clinical presentation, and elevated HEART score, we will proceed with nuclear stress test. Plan discussed with the patient in his at bedside. Patient agreeable to undergo nuclear stress test. Thank you for allowing us to care for this patient. Please call with any questions or concerns. Critical care time spent: 44 minutes This medical document was created using an electronic medical record system with voice recognition software and computerized dictation system. Although this document has been carefully reviewed, there might still be some phonetic and typographical errors. Occasional wrong-word or ``sound-alike substitutions may have occurred due to the inherent limitations of voice recognition software. These areas are purely typographical due to imperfections of the software programs and do not reflect any compromise in the patient's medical care. Please read the chart carefully and recognize, using context, where these substitutions have occurred. Plan discussed with: Patient NYHA Physical activity limitations: NA Date of Service: Apr 08, 2025 Billing Provider: MINESH LYLES Cardiology Common Codes: [id number] INP/OBS CARE (High) Cardiology Consultation Codes: [id number] CONSULT <45MIN MINESH LYLES Apr 08, 2025 10:44
[2025-04-08 12:10] LABS: Cholesterol 173 mg/dL (< 200); LDL Cholesterol 118 mg/dL (< 100); Triglycerides 150 mg/dL (< 150)
[2025-04-08 12:21] LABS: HDL Cholesterol 31 mg/dL (40-59)
[2025-04-08] MEDS: REGADENOSON 0.4 MG/5 ML SYRG IV ONE ×2 (12:57)
--- NOTE | 2025-04-08 14:32 | DVH ---
PROCEDURE: MRI BRAIN HEAD WO CONTRAST INDICATION: Vertigo, dizziness EXAM DATE: 04/08/2025 01:35 PM COMPARISON: None TECHNIQUE: MRI of the brain without intravenous contrast. FINDINGS: Diffusion weighted images of the brain demonstrate no evidence of acute infarction. There is no evidence of acute intracranial hemorrhage, extra-axial collection, mass effect, midline s hift, herniation or hydrocephalus. Edin cisterna magna. The signal intensities of the brain parenchyma are within normal limits. There are no signal abnormalities on the susceptibility weighted sequences. The major vascular flow voids are present. The visualized paranasal sinuses and mastoid air cells are clear. The surrounding soft tissues and o sseous structures are unremarkable. IMPRESSION: 1. No evidence of acute infarction, intracranial hemorrhage, mass effect or hydrocephalus. HS:Y
--- NOTE | 2025-04-08 19:04 | DVHPN2 ---
Progress Note - Dictate Date Seen: Apr 08, 2025 Medical Necessity Reason Pt with a Central, PICC or Fol: No Subjective Mr. Winston is a 64 years old right-handed gentleman with a history of hypertension, diabetes, sleep apnea, obesity, he was admitted to the [facility] on 04/06/2025 for dizziness. I have seen and examined the patient, he is alert and fully oriented, he reports the dizziness is son was better today He has read about benign paroxysmal positional vertigo, and he think that is his problem He wants to be discharged home Urinalysis, 04/06/2025: Unremarkable CBC, 04/07/2025: Unremarkable CMP, 04/07/2025: Unremarkable CT head, 04/06/2025:No acute intracranial abnormality MRI Head, 04/08/2025: No evidence of acute infarction, intracranial hemorrhage, mass effect or hydrocephalus. vital signs Vital Sign Date Time Temp Pulse Resp B/P (MAP) Pulse Ox O2 Delivery O2 Flow Rate FiO2 04/08/25 17:00 97.7 60 18 119/63 (81) 96 97.7 04/08/25 08:10 Room Air* 0 21 Total Intake and Output 04/07/25 04/07/25 04/08/25 15:00 23:00 07:00 Intake Total 900 ml 850 ml Balance 900 ml 850 ml medications Current Medications Medications Dose Ordered Sig/Farhat Route Start Time Stop Time Status Last Admin Dose Admin Meclizine HCl 25 mg Q8HPRN PRN PO 04/06/25 11:45 04/06/25 12:19 25 MG Sodium Chloride 10 ml Q8HR IV 04/06/25 14:00 04/08/25 14:14 10 ML Acetaminophen/ Hydrocodone Bitart 1 tab Q4HP PRN PO 04/06/25 11:45 Ondansetron HCl 4 mg Q4HP PRN IV 04/06/25 11:45 Docusate Sodium 100 mg BIDPRN PRN PO 04/06/25 11:45 Acetaminophen 650 mg Q6HP PRN PO 04/06/25 11:45 Nitroglycerin 0.4 mg Q5MINP PRN SL 04/06/25 14:30 Morphine Sulfate 2 mg Q30M PRN IV 04/06/25 14:30 Metoprolol Tartrate 50 mg BID PO 04/07/25 22:00 04/08/25 10:01 50 MG Lorazepam 1 mg ONCE PRN IV 04/07/25 21:45 objective General: the patient is well developed and nourished. No acute distress. MENTAL STATUS: Awake and alert. Oriented to person, place, time and general circumstances. Able to give personal history SPEECH, LANGUAGE, HIGHER CORTICAL FUNCTION: no aphasia or dysathria. CRANIAL NERVES: Pupils are equal, round and reactive. EOMs full and conjugate. No nystagmus. Facial sensation intact in all three divisions bilaterally. Mandibular strength intact. Facial muscles symmetrical and strength intact. SENSATION: Sensation to touch and pinprick is normal. MOTOR: Normal tone in the upper and lower extremity. Normal muscle bulk. No fasciculations. No abnormal movements or posturing. Muscle strength of the major groups in the extremities is 5/5. REFLEXES: Deep tendon reflexes normal and symmetrical. No pathological reflexes. CEREBELLAR/COORDINATION: Finger to nose and heel to pulido are normal bilaterally. GAIT/STATION: deferred. laboratory and microbiology Laboratory Tests 04/07/25 05:43 Test 04/07/25 05:43 Range/Units Serum Glucose 107 H 74-106 mg/dL Problem List Dizziness, unsteadiness Likely presyncopal event Rule out cardiac etiology Rule out intracranial acute abnormality Vertigo Likely benign paroxysmal positional vertigo Sleep apnea Assessment/Plan Monitoring Supportive treatment Telemetry Orthostatic vitals Cardiology consultation Syncopal precautions discussed CPAP in the hospital Further address benign paroxysmal positional vertigo as outpatient This medical document was created using an electronic medical record system with [employer] dictation system. Although this document has been carefully reviewed, there may still be some phonetic and typographical errors. These areas are purely typographical due to imperfections of the software programs, and do not reflect any compromise in the patient's medical care. Prognosis poor Plan discussed with: Patient AMANDA STODDARD MD Apr 08, 2025 19:04
[2025-04-09] VITALS (9 sets, daily range): BP systolic 107–138; BP diastolic 57–78; PULSE 54–88; RESP 17–19; TEMP 96.5–98.1; O2SAT 95–98
[2025-04-09] MEDS: ACETAMINOPHEN 325 MG TAB PO PRN (05:59)
--- NOTE | 2025-04-09 08:40 | DVHPN2 ---
Reviewed: Care Plan, H&P, Labs, Medications, Previous Orders, Radiology Changes from previous H/P or p: No Changes Eyes: No Pain, No Vision change, No Conjunctivae inflammation, No Eyelid inflammation, No Other, No Redness ENT: No Ear pain, No Ear discharge, No Nose pain, No Nose discharge, No Nose congestion, No Mouth pain, No Mouth swelling, No Throat pain, No Throat swelling, No Other Cardiovascular: Chest Pain; No Palpitations, No Orthopnea, No Paroxysmal Noc. Dyspnea, No Edema; Lt Headedness; No Other Respiratory: No Cough, No Dry, No Shortness of breath, No SOB with excertion, No Wheezing, No Hemoptysis, No Pleuritic Pain, No Sputum, No Other Gastrointestinal: Nausea; No Vomiting, No Abdominal Pain, No Diarrhea, No Constipation, No Melena, No Hematochezia, No Other Genitourinary: No Dysuria, No Frequency, No Incontinence, No Hematuria, No Retention, No Other Musculoskeletal: No other, No neck pain, No shoulder pain, No arm pain, No back pain, No hand pain, No leg pain, No foot pain Skin: No Rash, No Lesions, No Jaundice, No Bruising, No Other Objective Vitals Vital Signs Date Time Temp Pulse Resp B/P (MAP) Pulse Ox O2 Delivery O2 Flow Rate FiO2 04/09/25 05:00 97.0 88 19 134/64 (87) 96 97.0 04/08/25 20:00 Room Air* 0 21 Intake/Output Intake and Output 04/09/25 07:00 Intake Total 2525 ml Balance 2525 ml Intake Oral 2525 ml # Voids 6 # Bowel Movements 2 Medications Current Medications Medications Dose Ordered Sig/Farhat Route Start Time Stop Time Status Last Admin Dose Admin Meclizine HCl 25 mg Q8HPRN PRN PO 04/06/25 11:45 04/06/25 12:19 25 MG Sodium Chloride 10 ml Q8HR IV 04/06/25 14:00 04/09/25 06:00 10 ML Acetaminophen/ Hydrocodone Bitart 1 tab Q4HP PRN PO 04/06/25 11:45 Ondansetron HCl 4 mg Q4HP PRN IV 04/06/25 11:45 Docusate Sodium 100 mg BIDPRN PRN PO 04/06/25 11:45 Acetaminophen 650 mg Q6HP PRN PO 04/06/25 11:45 04/09/25 05:59 650 MG Nitroglycerin 0.4 mg Q5MINP PRN SL 04/06/25 14:30 Morphine Sulfate 2 mg Q30M PRN IV 04/06/25 14:30 Metoprolol Tartrate 50 mg BID PO 04/07/25 22:00 04/08/25 22:06 50 MG Lorazepam 1 mg ONCE PRN IV 04/07/25 21:45 Aspirin 81 mg DAILY PO 04/09/25 10:00 UNV Atorvastatin Calcium 20 mg HS PO 04/09/25 22:00 UNV Laboratory Results Laboratory Tests 04/07/25 05:43 Lipid panel Test 04/08/25 11:30 Cholesterol Level 173 mg/dL (< 200) HDL Cholesterol 31 mg/dL (40-59) L Triglycerides Level 150 mg/dL (< 150) H HgA1c, TSH Test 04/08/25 11:30 Hemoglobin A1c 5.2 % A1C (<5.7) Thyroid Stimulating Hormone (TSH) 2.98 uIU/mL (0.55-4.78) Urinalysis Test 04/06/25 09:00 Urine Color Light-yellow (Yellow) Urine Clarity Clear (Clear) Urine pH 5.5 (5.0-9.0) Urine Specific [place] 1.023 (1.001-1.035) Urine Protein Negative (Negative) Urine Ketones Negative (Negative) Urine Blood Trace /uL (Negative) H Urine Nitrite Negative (Negative) Urine Bilirubin Negative (Negative) Urine Urobilinogen Normal mg/dL (Negative) Urine Leukocyte Esterase Negative /uL (Negative) Urine RBC 1 /hpf (0 - 3) Urine Microscopic WBC 1 /HPF (0-3) Urine Squamous Epithelial Cells Few /hpf (<5) Urine Bacteria None seen /hpf (None Seen) Urine Mucus Few (None Seen) Urine Glucose Normal mg/dL (Normal) Labs and/or images reviewed: Labs reviewed by me, Image(s) reviewed by me Assessment/Plan Assessment/Plan Near syncope CT head negative, Neurology consult appreciated, cardiology consult appreciated, echocardiogram pending, carotid ultrasound negative, MRI brain negative cardiology planning for Cardiolite stress test Chest pain rule out coronary ischemia Hypertension Hypercholesterolemia Hyperkalemia resolved Generalized weakness Acute respiratory distress chest x-ray normal History of sleep apnea Plan discussed with: Patient My Orders Orders - HANNA RAYMOND MD Procedure Category Date Status Time * Cardiology Consult CONS 04/08/25 Transmitted 08:42 Carotid Duplx W Color US 04/08/25 Resulted DOP 08:48 Echo 2d Mode Cardiac US 04/09/25 Logged DOP 08:40 Date of Service: Apr 09, 2025 Billing Provider: HANNA RAYMOND MD Common Visit Codes: [id number] INP/OBS CARE(HIGH) HANNA RAYMOND MD Apr 09, 2025 08:40
[2025-04-09] MEDS: ASPirin 81 mg TAB PO SCH (09:56)
--- NOTE | 2025-04-09 15:48 | DVHPN2 ---
Consult Progress Note Subjective Patient reports: Feels better Review of Systems: CVS:Abnormal (slight chest pressure intermittent) Objective vital signs Vital Sign Date Time Temp Pulse Resp B/P (MAP) Pulse Ox O2 Delivery O2 Flow Rate FiO2 04/09/25 13:00 74 117/60 (79) 04/09/25 12:57 97.9 17 96 97.9 04/09/25 08:00 Room Air* 0 21 Total Intake and Output 04/08/25 04/08/25 04/09/25 15:00 23:00 07:00 Intake Total 2125 ml 400 ml Balance 2125 ml 400 ml medications Current Medications Medications Dose Ordered Sig/Farhat Route Start Time Stop Time Status Last Admin Dose Admin Meclizine HCl 25 mg Q8HPRN PRN PO 04/06/25 11:45 04/06/25 12:19 25 MG Sodium Chloride 10 ml Q8HR IV 04/06/25 14:00 04/09/25 06:00 10 ML Acetaminophen/ Hydrocodone Bitart 1 tab Q4HP PRN PO 04/06/25 11:45 Ondansetron HCl 4 mg Q4HP PRN IV 04/06/25 11:45 Docusate Sodium 100 mg BIDPRN PRN PO 04/06/25 11:45 Acetaminophen 650 mg Q6HP PRN PO 04/06/25 11:45 04/09/25 05:59 650 MG Nitroglycerin 0.4 mg Q5MINP PRN SL 04/06/25 14:30 Morphine Sulfate 2 mg Q30M PRN IV 04/06/25 14:30 Metoprolol Tartrate 50 mg BID PO 04/07/25 22:00 04/09/25 09:57 50 MG Lorazepam 1 mg ONCE PRN IV 04/07/25 21:45 Aspirin 81 mg DAILY PO 04/09/25 10:00 04/09/25 09:56 81 MG Atorvastatin Calcium 20 mg HS PO 04/09/25 22:00 Examination: CVS:Normal (Telemetry consistent with sinus rhythm at 68 beats per minute on review, no significant overnight events noted) laboratory and microbiology Laboratory Tests 04/07/25 05:43 Test 04/07/25 05:43 Range/Units Serum Glucose 107 H 74-106 mg/dL Problem List/Assessment/Plan Problem List/Assessment/Plan Assessment Syncope, rule out cardiac etiology Chest pain, rule out coronary ischemia Rule out structural heart disease Hypertension Dyslipidemia, newly diagnosed Hyperkalemia, resolved Morbid obesity Plan/Recommendation We will continue with following plan/recommendations (Dr. Tamez): * Follow-up echo. * Chest pain protocol * HEART score: 4 points (moderate score) * Bilateral carotid ultrasound: No hemodynamically significant stenosis in right or left carotid system * Orthostatic vitals negative * Close Cardiac surveillance * Nuclear stress test positive for inferior inducible ischemia. Case Discussed with Dr Tamez. Patient underwent nuclear stress test showing inferior inducible ischemia. Patient states continues to have chest pressure/cramping intermittently left lower chest area radiating across to the right. Plan of care discussed with patient, recommend coronary angiogram. We will scheduled for Friday, NPO after midnight Friday. Critical care, time spent: 40 minutes This medical document was created using an electronic medical record system with voice recognition software and computerized dictation system. Although this document has been carefully reviewed, there might still be some phonetic and typographical errors. Occasional wrong-word or ``sound-alike substitutions may have occurred due to the inherent limitations of voice recognition software. These areas are purely typographical due to imperfections of the software programs and do not reflect any compromise in the patient's medical care. Please read the chart carefully and recognize, using context, where these substitutions have occurred. Thank you for allowing me to participate in the management of this patient. The treatment plan was discussed with and agreed upon by patient/family including requesting consultants and ordering of imaging/procedures. Given the patient's clinical presentation, and elevated HEART score, we will proceed with nuclear stress test. Plan discussed with the patient in his at bedside. Patient agreeable to undergo nuclear stress test. Thank you for allowing us to care for this patient. Please call with any questions or concerns. Critical care time spent: 44 minutes Plan discussed with: Patient Dietary Evaluation Review Recommendations by RD: Dietary education by RD Comments: 1) Encourage optimal PO intake 2) Refer to outpatient RD for weight management 3) Follow-up with neurology and cardiology 4) Continue to monitor I&O, labs, and skin integrity Expected Outcomes/Goals: 1) appetite and labs to improve 2) f/u in 3-5 days Date of Service: Apr 09, 2025 [facility] Visit Codes: [id number] INP/OBS CARE(HIGH), [id number] CARE 30-74 MIN NEAL PELLETIER [facility] Apr 09, 2025 15:48
[2025-04-09] MEDS: ATORVASTATIN 20 MG TAB PO SCH (21:51)
[2025-04-10] VITALS (8 sets, daily range): BP systolic 0–147; BP diastolic 48–92; PULSE 60–69; RESP 17–20; TEMP 96.8–98; O2SAT 95–99
--- NOTE | 2025-04-10 09:12 | DVHPN2 ---
Reviewed: Care Plan, H&P, Labs, Medications, Previous Orders, Radiology Changes from previous H/P or p: No Changes Eyes: No Pain, No Vision change, No Conjunctivae inflammation, No Eyelid inflammation, No Other, No Redness ENT: No Ear pain, No Ear discharge, No Nose pain, No Nose discharge, No Nose congestion, No Mouth pain, No Mouth swelling, No Throat pain, No Throat swelling, No Other Cardiovascular: Chest Pain; No Palpitations, No Orthopnea, No Paroxysmal Noc. Dyspnea, No Edema; Lt Headedness; No Other Respiratory: No Cough, No Dry, No Shortness of breath, No SOB with excertion, No Wheezing, No Hemoptysis, No Pleuritic Pain, No Sputum, No Other Gastrointestinal: Nausea; No Vomiting, No Abdominal Pain, No Diarrhea, No Constipation, No Melena, No Hematochezia, No Other Genitourinary: No Dysuria, No Frequency, No Incontinence, No Hematuria, No Retention, No Other Musculoskeletal: No other, No neck pain, No shoulder pain, No arm pain, No back pain, No hand pain, No leg pain, No foot pain Skin: No Rash, No Lesions, No Jaundice, No Bruising, No Other Objective Vitals Vital Signs Date Time Temp Pulse Resp B/P (MAP) Pulse Ox O2 Delivery O2 Flow Rate FiO2 04/10/25 09:05 60 108/55 04/10/25 08:00 18 Room Air* 0 21 04/10/25 05:00 97.5 96 97.5 Intake/Output Intake and Output 04/10/25 07:00 Intake Total 1500 ml Balance 1500 ml Intake Oral 1500 ml # Voids 4 # Bowel Movements 1 Medications Current Medications Medications Dose Ordered Sig/Farhat Route Start Time Stop Time Status Last Admin Dose Admin Meclizine HCl 25 mg Q8HPRN PRN PO 04/06/25 11:45 04/06/25 12:19 25 MG Sodium Chloride 10 ml Q8HR IV 04/06/25 14:00 04/10/25 05:44 10 ML Acetaminophen/ Hydrocodone Bitart 1 tab Q4HP PRN PO 04/06/25 11:45 Ondansetron HCl 4 mg Q4HP PRN IV 04/06/25 11:45 Docusate Sodium 100 mg BIDPRN PRN PO 04/06/25 11:45 Acetaminophen 650 mg Q6HP PRN PO 04/06/25 11:45 04/09/25 05:59 650 MG Nitroglycerin 0.4 mg Q5MINP PRN SL 04/06/25 14:30 Morphine Sulfate 2 mg Q30M PRN IV 04/06/25 14:30 Metoprolol Tartrate 50 mg BID PO 04/07/25 22:00 04/09/25 21:51 50 MG Lorazepam 1 mg ONCE PRN IV 04/07/25 21:45 Aspirin 81 mg DAILY PO 04/09/25 10:00 04/10/25 09:04 81 MG Atorvastatin Calcium 20 mg HS PO 04/09/25 22:00 04/09/25 21:51 20 MG Laboratory Results Laboratory Tests 04/07/25 05:43 Urinalysis Test 04/06/25 09:00 Urine Color Light-yellow (Yellow) Urine Clarity Clear (Clear) Urine pH 5.5 (5.0-9.0) Urine Specific [place] 1.023 (1.001-1.035) Urine Protein Negative (Negative) Urine Ketones Negative (Negative) Urine Blood Trace /uL (Negative) H Urine Nitrite Negative (Negative) Urine Bilirubin Negative (Negative) Urine Urobilinogen Normal mg/dL (Negative) Urine Leukocyte Esterase Negative /uL (Negative) Urine RBC 1 /hpf (0 - 3) Urine Microscopic WBC 1 /HPF (0-3) Urine Squamous Epithelial Cells Few /hpf (<5) Urine Bacteria None seen /hpf (None Seen) Urine Mucus Few (None Seen) Urine Glucose Normal mg/dL (Normal) Labs and/or images reviewed: Labs reviewed by me, Image(s) reviewed by me Assessment/Plan Assessment/Plan Near syncope CT head negative, Neurology consult appreciated, cardiology consult appreciated, echocardiogram pending, carotid ultrasound negative, MRI brain negative , Cardiolite stress test positive, scheduled for left heart catheterization on Friday Chest pain rule out coronary ischemia Hypertension Hypercholesterolemia Hyperkalemia resolved Generalized weakness Acute respiratory distress chest x-ray normal History of sleep apnea Plan discussed with: Patient Date of Service: Apr 10, 2025 Billing Provider: HANNA RAYMOND MD Common Visit Codes: [id number] INP/OBS CARE(HIGH) HANNA RAYMOND MD Apr 10, 2025 09:12
--- NOTE | 2025-04-10 10:30 | DVHPN2 ---
Consult Progress Note Subjective Patient reports: No new complaints Objective vital signs Vital Sign Date Time Temp Pulse Resp B/P (MAP) Pulse Ox O2 Delivery O2 Flow Rate FiO2 04/10/25 09:30 98.0 60 19 108/55 (72) 99 98.0 04/10/25 08:00 Room Air* 0 21 Total Intake and Output 04/09/25 04/09/25 04/10/25 15:00 23:00 07:00 Intake Total 700 ml 800 ml Balance 700 ml 800 ml medications Current Medications Medications Dose Ordered Sig/Farhat Route Start Time Stop Time Status Last Admin Dose Admin Meclizine HCl 25 mg Q8HPRN PRN PO 04/06/25 11:45 04/06/25 12:19 25 MG Sodium Chloride 10 ml Q8HR IV 04/06/25 14:00 04/10/25 05:44 10 ML Acetaminophen/ Hydrocodone Bitart 1 tab Q4HP PRN PO 04/06/25 11:45 Ondansetron HCl 4 mg Q4HP PRN IV 04/06/25 11:45 Docusate Sodium 100 mg BIDPRN PRN PO 04/06/25 11:45 Acetaminophen 650 mg Q6HP PRN PO 04/06/25 11:45 04/09/25 05:59 650 MG Nitroglycerin 0.4 mg Q5MINP PRN SL 04/06/25 14:30 Morphine Sulfate 2 mg Q30M PRN IV 04/06/25 14:30 Metoprolol Tartrate 50 mg BID PO 04/07/25 22:00 04/09/25 21:51 50 MG Lorazepam 1 mg ONCE PRN IV 04/07/25 21:45 Aspirin 81 mg DAILY PO 04/09/25 10:00 04/10/25 09:04 81 MG Atorvastatin Calcium 20 mg HS PO 04/09/25 22:00 04/09/25 21:51 20 MG Examination: CVS:Normal (Telemetry reviewed, consistent with sinus rhythm.) laboratory and microbiology Laboratory Tests 04/07/25 05:43 Test 04/07/25 05:43 Range/Units Serum Glucose 107 H 74-106 mg/dL Problem List/Assessment/Plan Problem List/Assessment/Plan Assessment Syncope, rule out cardiac etiology Chest pain, rule out coronary ischemia Rule out structural heart disease Hypertension Dyslipidemia, newly diagnosed Hyperkalemia, resolved Morbid obesity Plan/Recommendation We will continue with following plan/recommendations (Dr. Tamez): * Follow-up echo. * Chest pain protocol * HEART score: 4 points (moderate score) * Bilateral carotid ultrasound: No hemodynamically significant stenosis in right or left carotid system * Orthostatic vitals negative * Close Cardiac surveillance * Nuclear stress test positive for inferior inducible ischemia. Case Discussed with Dr Tamez. Patient underwent nuclear stress test showing inferior inducible ischemia. Patient states continues to have chest pressure/cramping intermittently left lower chest area radiating across to the right. Plan of care discussed with patient, Recommend cardiac catheterization +/- PCI. All risks, benefits, and alternatives of cardiac catheterization explained to the patient including the risk of stroke, PR, , coronary perforation, pericardial tamponade, contrast induced nephropathy, need for emergent CABG, mechanical support, mechanical ventilation, and bleeding from vascular complications from the procedure. Patient is agreeable to proceed with procedure. We will scheduled for tomorrow, NPO after midnight. Critical care, time spent: 40 minutes This medical document was created using an electronic medical record system with voice recognition software and computerized dictation system. Although this document has been carefully reviewed, there might still be some phonetic and typographical errors. Occasional wrong-word or ``sound-alike substitutions may have occurred due to the inherent limitations of voice recognition software. These areas are purely typographical due to imperfections of the software programs and do not reflect any compromise in the patient's medical care. Please read the chart carefully and recognize, using context, where these substitutions have occurred. Thank you for allowing me to participate in the management of this patient. The treatment plan was discussed with and agreed upon by patient/family including requesting consultants and ordering of imaging/procedures. Given the patient's clinical presentation, and elevated HEART score, we will proceed with nuclear stress test. Plan discussed with the patient in his at bedside. Patient agreeable to undergo nuclear stress test. Thank you for allowing us to care for this patient. Please call with any questions or concerns. Critical care time spent: 44 minutes Plan discussed with: Patient Dietary Evaluation Review Recommendations by RD: Dietary education by RD Comments: 1) Encourage optimal PO intake 2) Refer to outpatient RD for weight management 3) Follow-up with neurology and cardiology 4) Continue to monitor I&O, labs, and skin integrity Expected Outcomes/Goals: 1) appetite and labs to improve 2) f/u in 3-5 days Date of Service: Apr 10, 2025 Billing Provider: NEAL PELLETIER Common Visit Codes: [id number] INP/OBS CARE(HIGH) NEAL PELLETIER Apr 10, 2025 10:30
--- NOTE | 2025-04-10 14:43 | DVHSR ---
APPROVED REPORT EXAM: Two-dimensional and M-mode echocardiogram with Doppler and color Doppler. Blood Pressure: 134/64 mmHg INDICATION Syncope RISK FACTORS Obesity: Height: 5'11", Weight: 324 DIMENSIONS LVDd4.5 (3.8-5.7cm)LA (2D)4.3 (1.9-4.0cm)Aortic Root3.5 (2.0-3.7cm) LVDs3.4 (2.5-4.0cm)LA (MM) (1.9-4.0cm)Aortic Cusp Exc1.9 (1.5-2.0cm) EF (%) 50.0 (55-70%)Rt. Atrium4.8 (1.9-4.0cm)Asc. Aorta cm IVSd1.3 (0.7-1.1cm)RV (D)4.9 (1.8-2.4cm) PWd1.3 (0.7-1.1cm) Mitral Valve MitralMitral Stenosis E wave0.85m/sMV Mean GR.mmHg A wave0.85m/sMV Peak GR.mmHg E/A ratio1.02D MVAcm2 DECEL [id number] 1/2 Timems Aortic Valve Aortic ValveAortic Stenosis V10.81m/Dilip Mean GR.3mmHg V21.15m/Dilip Peak GR.5mmHg LVOT Diameter1.7 (1.8-2.4cm)Doppler AVA1.60cm2 Other Information Quality : LimitedRhythm : Technically limited study due to body habitus. Conclusion Sinus rhythm. Concentric LVH with biatrial enlargement. Valves appear to be structurally normal. EF of 50% with normal RV function. Mild TR. No pericardial effusion masses or vegetations.
[2025-04-11] VITALS (11 sets, daily range): BP systolic 105–139; BP diastolic 54–84; PULSE 60–83; RESP 11–18; TEMP 97–98.2; O2SAT 91–96
--- NOTE | 2025-04-11 08:33 | DVHPN2 ---
Progress Note - Dictate Date Seen: Apr 11, 2025 Medical Necessity Reason Pt with a Central, PICC or Fol: No Subjective Mr. Winston is a 64 years old right-handed gentleman with a history of hypertension, diabetes, sleep apnea, obesity, he was admitted to the [facility] on 04/06/2025 for dizziness. I have seen and examined the patient, he is alert and fully oriented, no new complaints He is to have cataract catheterization today Urinalysis, 04/06/2025: Unremarkable CBC, 04/07/2025: Unremarkable CMP, 04/07/2025: Unremarkable Echocardiogram, 04/10/2025: Sinus rhythm. Concentric LVH with biatrial enlargement. Valves appear to be structurally normal. EF of 50% with normal RV function. Mild TR. No pericardial effusion masses or vegetations. Carotid Doppler, 04/08/2025: No hemodynamically significant stenosis noted in the right carotid system. No hemodynamically significant stenosis noted in the left carotid system. CT head, 04/06/2025:No acute intracranial abnormality Cardiolite stress test, 04/08/2025: Nuclear Findings: positive for ischemia lvef 58% inferior wall ishcemia noted abnormal study MRI Head, 04/08/2025: No evidence of acute infarction, intracranial hemorrhage, mass effect or hydrocephalus. vital signs Vital Sign Date Time Temp Pulse Resp B/P (MAP) Pulse Ox O2 Delivery O2 Flow Rate FiO2 04/11/25 05:00 98.2 70 18 139/77 (97) 94 98.2 04/11/25 02:53 Room Air* 0 21 Total Intake and Output 04/10/25 04/10/25 04/11/25 15:00 23:00 07:00 Intake Total 0 ml Balance 0 ml medications Current Medications Medications Dose Ordered Sig/Farhat Route Start Time Stop Time Status Last Admin Dose Admin Meclizine HCl 25 mg Q8HPRN PRN PO 04/06/25 11:45 04/06/25 12:19 25 MG Sodium Chloride 10 ml Q8HR IV 04/06/25 14:00 04/11/25 05:07 10 ML Acetaminophen/ Hydrocodone Bitart 1 tab Q4HP PRN PO 04/06/25 11:45 Ondansetron HCl 4 mg Q4HP PRN IV 04/06/25 11:45 Docusate Sodium 100 mg BIDPRN PRN PO 04/06/25 11:45 Acetaminophen 650 mg Q6HP PRN PO 04/06/25 11:45 04/09/25 05:59 650 MG Nitroglycerin 0.4 mg Q5MINP PRN SL 04/06/25 14:30 Morphine Sulfate 2 mg Q30M PRN IV 04/06/25 14:30 Metoprolol Tartrate 50 mg BID PO 04/07/25 22:00 04/10/25 21:11 50 MG Lorazepam 1 mg ONCE PRN IV 04/07/25 21:45 Aspirin 81 mg DAILY PO 04/09/25 10:00 04/10/25 09:04 81 MG Atorvastatin Calcium 20 mg HS PO 04/09/25 22:00 04/10/25 21:08 20 MG objective General: the patient is well developed and nourished. No acute distress. MENTAL STATUS: Awake and alert. Oriented to person, place, time and general circumstances. Able to give personal history SPEECH, LANGUAGE, HIGHER CORTICAL FUNCTION: no aphasia or dysathria. CRANIAL NERVES: Pupils are equal, round and reactive. EOMs full and conjugate. No nystagmus. Facial sensation intact in all three divisions bilaterally. Mandibular strength intact. Facial muscles symmetrical and strength intact. SENSATION: Sensation to touch and pinprick is normal. MOTOR: Normal tone in the upper and lower extremity. Normal muscle bulk. No fasciculations. No abnormal movements or posturing. Muscle strength of the major groups in the extremities is 5/5. REFLEXES: Deep tendon reflexes normal and symmetrical. No pathological reflexes. CEREBELLAR/COORDINATION: Finger to nose and heel to pulido are normal bilaterally. GAIT/STATION: deferred. laboratory and microbiology Laboratory Tests 04/07/25 05:43 Test 04/07/25 05:43 Range/Units Serum Glucose 107 H 74-106 mg/dL Problem List Dizziness, unsteadiness Likely presyncopal event Rule out cardiac etiology Rule out intracranial acute abnormality Vertigo Likely benign paroxysmal positional vertigo Sleep apnea Assessment/Plan Monitoring Supportive treatment Telemetry Cataract catheterization Cardiology consultation Syncopal precautions discussed CPAP in the hospital Further address benign paroxysmal positional vertigo as outpatient This medical document was created using an electronic medical record system with [employer] system. Although this document has been carefully reviewed, there may still be some phonetic and typographical errors. These areas are purely typographical due to imperfections of the software programs, and do not reflect any compromise in the patient's medical care. Dietary Evaluation Review Recommendations by RD: Dietary education by RD Comments: 1) Encourage optimal PO intake 2) Refer to outpatient RD for weight management 3) Follow-up with neurology and cardiology 4) Continue to monitor I&O, labs, and skin integrity Expected Outcomes/Goals: 1) appetite and labs to improve 2) f/u in 3-5 days Plan discussed with: Other AMANDA STODDARD MD Apr 11, 2025 08:32
[2025-04-11] MEDS: IODIXANOL 320MG/ML 100ML BTL IV ONE ×2 (08:58→09:36)
[2025-04-11] MEDS: HEPARIN IN NS 1000Units/500mL 0 ML ONE (08:58)
--- NOTE | 2025-04-11 09:33 | DVHSR ---
APPROVED REPORT Exam: Nuclear Stress Test BMI: 0 Stress Test Details Stress Test: Pharmacologic stress testing performed using 0.4 mg of regadenoson per 5 mL given IV ov er 10 seconds. HR Resting HR: 70 bpmMax Heart Rate (APMHR): 156.364223 bpm Max HR Achieved: 81 bpmTarget HR (85% APMHR): 132.129505 bpm % of APMHR: 51.92 Recovery HR: 72 bpm BP Resting BP: 158/78 mmHg Recovery BP: 124/59 mmHg ECG Resting ECG: Sinus Rhythm Clinical Reason for Termination: Completed protocol Nurse Comments Recieved pt. from [facility]. A/Ox4 on RA. 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 PIV flushes well. Re viewed POC. Pt. verbalized understanding of procedure including risks and side effects, agrees for st ress testing. Lexiscan stress test performed per protocol. [facility] tech administered Cardiolite. Pt. tolerated well . Pt. stable, no change on exam. VS returned to baseline. Transferred to [facility] via wheelchair w/ te ch. Stress ECG Conclusion lvef 58% inferior wall ishcemia noted abnormal study NM EXAM: Myocardial Perfusion REST/STRESS Imaging Protocol: Rest Tc-99m/Stress Tc-99m 1 day Resting Data Rest SPECT myocardial perfusion imaging was performed in supine position 60 minutes following the int ravenous injection of 12.5 mCi of Tc-99m Sestamibi. Time of rest injection: 1145 Time of rest imagin Administration Route: IV Administration Site: Left AC Pharmacologic Stress Pharmacologic stress test was performed by injecting Regadenoson 0.4 mg IV push followed by the intra venous injection of 29.3 mCi of Tc-99m Sestamibi. Time of stress injection: 1300 Time of stress imagin Administration Route: IV Administration Site: Left AC Gated Stress SPECT was performed 120 minutes after stress injection. The images were gated to evaluate regional wall motion and calculate left ventricular ejection fracti on. Nuclear Conclusion Nuclear Findings: positive for ischemia lvef 58% inferior wall ishcemia noted abnormal study
[2025-04-11] MEDS: VERAPAMIL 2.5MG/ML INJ 2ML VIAL IV ONE (09:40)
[2025-04-11] MEDS: ANGIOMAX 250 MG VIAL IV ONE (09:40)
[2025-04-11] MEDS: HEPARIN SODIUM (PORCINE) 5000 UNITS/ML 1ML VIAL ONE (09:40)
[2025-04-11] MEDS: SODIUM CHL 0.9% 0 ML ONE (09:41)
[2025-04-11] MEDS: fentaNYL CITRATE 100 MCG/2 ML VL ONE (09:41)
[2025-04-11] MEDS: MIDAZOLAM HCL 2MG/2ML 2ml VIAL (1mg/ml) ONE (09:41)
[2025-04-11] MEDS: LIDOCAINE 2%HCL (LOCAL ANESTH.) INJ 20ML MDV ONE (09:42)
[2025-04-11] MEDS: methylPREDNISolone SOD SUCC 125 MG/2 ML VL ONE (10:23)
[2025-04-11] MEDS: diphenhdrAMINE HCL 50 MG/1 ML VL ONE (10:23)
[2025-04-11] MEDS: FAMOTIDINE (10MG/ML) 2ML VL IV ONE (10:24)
--- NOTE | 2025-04-11 10:31 | DVHPN2 ---
Progress Note Date Seen: Apr 11, 2025 Medical Necessity Reason Pt with a Central, PICC or Fol: No Subjective Patient reports: Feels better Other Systems: sp cath Objective vital signs Vital Sign Date Time Temp Pulse Resp B/P (MAP) Pulse Ox O2 Delivery O2 Flow Rate FiO2 04/11/25 09:00 97.8 83 16 117/70 (86) 93 97.8 04/11/25 02:53 Room Air* 0 21 Total Intake and Output 04/10/25 04/10/25 04/11/25 15:00 23:00 07:00 Intake Total 0 ml Balance 0 ml medications Current Medications Medications Dose Ordered Sig/Farhat Route Start Time Stop Time Status Last Admin Dose Admin Meclizine HCl 25 mg Q8HPRN PRN PO 04/06/25 11:45 04/06/25 12:19 25 MG Sodium Chloride 10 ml Q8HR IV 04/06/25 14:00 04/11/25 05:07 10 ML Acetaminophen/ Hydrocodone Bitart 1 tab Q4HP PRN PO 04/06/25 11:45 Ondansetron HCl 4 mg Q4HP PRN IV 04/06/25 11:45 Docusate Sodium 100 mg BIDPRN PRN PO 04/06/25 11:45 Acetaminophen 650 mg Q6HP PRN PO 04/06/25 11:45 04/09/25 05:59 650 MG Nitroglycerin 0.4 mg Q5MINP PRN SL 04/06/25 14:30 Morphine Sulfate 2 mg Q30M PRN IV 04/06/25 14:30 Metoprolol Tartrate 50 mg BID PO 04/07/25 22:00 04/10/25 21:11 50 MG Lorazepam 1 mg ONCE PRN IV 04/07/25 21:45 Aspirin 81 mg DAILY PO 04/09/25 10:00 04/10/25 09:04 81 MG Atorvastatin Calcium 20 mg HS PO 04/09/25 22:00 04/10/25 21:08 20 MG Examination: GENERAL:Abnormal, HEENT:Abnormal, LUNGS:Abnormal, CVS:Abnormal, ABDOMEN:Abnormal laboratory and microbiology Laboratory Tests 04/07/25 05:43 Test 04/07/25 05:43 Range/Units Serum Glucose 107 H 74-106 mg/dL Problem List/Assessment/Plan Problem List/Assessment/Plan ACS obesity abnormal stress mpi r/o cva LHC shows no severe cad noted cont asa, statin fu neuro recs dc home when stable Plan discussed with: Patient My Orders My Orders Orders - FARSHAD LEÓN MD Procedure Category Date Status Time Cl Left Heart Cath CL 04/11/25 Taken 08:51 Dietary Evaluation Review Recommendations by RD: Dietary education by RD Comments: 1) Encourage optimal PO intake 2) Refer to outpatient RD for weight management 3) Follow-up with neurology and cardiology 4) Continue to monitor I&O, labs, and skin integrity Expected Outcomes/Goals: 1) appetite and labs to improve 2) f/u in 3-5 days Date of Service: Apr 11, 2025 Billing Provider: FARSHAD LEÓN MD Common Visit Codes: NOT BILLABLE FARSHAD LEÓN MD Apr 11, 2025 10:31
--- NOTE | 2025-04-11 10:32 | DVHOP2 ---
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 PREOPERATIVE DIAGNOSES: Abnormal stress test with CCS class 3 angina, POSTOP DIAGNOSIS: cad DESCRIPTION OF PROCEDURE: The patient or appropriate family signed informed consent understanding the risks, benefits and alternatives of the procedure, they wished to proceed. The patient was brought to the cardiac quality control lab technician in n.p.o. state. The patient was prepped in a sterile fashion. Sedation was used per cardiac cath protocol. I administered 2 mL of 2% lidocaine to the right wrist. With an antegrade front wall puncture. I cannulated the right radial artery and placed a 6-Urdu Glidesheath slender. Next, an intra-arterial spasmolytic was administered. Next, a - 6[place] catheter and pigtail and were used for coronary angiogram and LVEDP measurement and pressure pullback. At the completion of procedure, all guides and wires were removed, and there were no immediate complications. 5000 U of IV heparin given FINDINGS: RCA: Moderate vessel off the right sinus of Valsalva, there is no severe flow limiting stenosis. LEFT MAIN: Moderate size left main, it bifurcates into LAD and circumflex. no stenosis CIRCUMFLEX: Moderate caliber vessel coming off the left main with no flow limiting stenosis. LAD: LAD is a moderate caliber vessel coming of the left main. no stenosis LVEDP of 12 mmhg CONCLUSIONS: 1. No severe cad noted PLAN: Aggressive risk factor modification and medical management for the patient. FARSHAD LEÓN MD Apr 11, 2025 10:32
--- NOTE | 2025-04-11 11:32 | DVHPN2 ---
Reviewed: Care Plan, H&P, Labs, Medications, Previous Orders, Radiology Changes from previous H/P or p: No Changes Eyes: No Pain, No Vision change, No Conjunctivae inflammation, No Eyelid inflammation, No Other, No Redness ENT: No Ear pain, No Ear discharge, No Nose pain, No Nose discharge, No Nose congestion, No Mouth pain, No Mouth swelling, No Throat pain, No Throat swelling, No Other Cardiovascular: Chest Pain; No Palpitations, No Orthopnea, No Paroxysmal Noc. Dyspnea, No Edema; Lt Headedness; No Other Respiratory: No Cough, No Dry, No Shortness of breath, No SOB with excertion, No Wheezing, No Hemoptysis, No Pleuritic Pain, No Sputum, No Other Gastrointestinal: Nausea; No Vomiting, No Abdominal Pain, No Diarrhea, No Constipation, No Melena, No Hematochezia, No Other Genitourinary: No Dysuria, No Frequency, No Incontinence, No Hematuria, No Retention, No Other Musculoskeletal: No other, No neck pain, No shoulder pain, No arm pain, No back pain, No hand pain, No leg pain, No foot pain Skin: No Rash, No Lesions, No Jaundice, No Bruising, No Other Objective Vitals Vital Signs Date Time Temp Pulse Resp B/P (MAP) Pulse Ox O2 Delivery O2 Flow Rate FiO2 04/11/25 09:00 97.8 83 16 117/70 (86) 93 97.8 04/11/25 02:53 Room Air* 0 21 Intake/Output Intake and Output 04/11/25 07:00 Intake Total 0 ml Balance 0 ml Intake Oral 0 ml # Voids 2 # Bowel Movements 1 Medications Current Medications Medications Dose Ordered Sig/Farhat Route Start Time Stop Time Status Last Admin Dose Admin Meclizine HCl 25 mg Q8HPRN PRN PO 04/06/25 11:45 04/06/25 12:19 25 MG Sodium Chloride 10 ml Q8HR IV 04/06/25 14:00 04/11/25 05:07 10 ML Acetaminophen/ Hydrocodone Bitart 1 tab Q4HP PRN PO 04/06/25 11:45 Ondansetron HCl 4 mg Q4HP PRN IV 04/06/25 11:45 Docusate Sodium 100 mg BIDPRN PRN PO 04/06/25 11:45 Acetaminophen 650 mg Q6HP PRN PO 04/06/25 11:45 04/09/25 05:59 650 MG Nitroglycerin 0.4 mg Q5MINP PRN SL 04/06/25 14:30 Morphine Sulfate 2 mg Q30M PRN IV 04/06/25 14:30 Metoprolol Tartrate 50 mg BID PO 04/07/25 22:00 04/10/25 21:11 50 MG Lorazepam 1 mg ONCE PRN IV 04/07/25 21:45 Aspirin 81 mg DAILY PO 04/09/25 10:00 04/10/25 09:04 81 MG Atorvastatin Calcium 20 mg HS PO 04/09/25 22:00 04/10/25 21:08 20 MG Laboratory Results Laboratory Tests 04/07/25 05:43 Urinalysis Test 04/06/25 09:00 Urine Color Light-yellow (Yellow) Urine Clarity Clear (Clear) Urine pH 5.5 (5.0-9.0) Urine Specific [place] 1.023 (1.001-1.035) Urine Protein Negative (Negative) Urine Ketones Negative (Negative) Urine Blood Trace /uL (Negative) H Urine Nitrite Negative (Negative) Urine Bilirubin Negative (Negative) Urine Urobilinogen Normal mg/dL (Negative) Urine Leukocyte Esterase Negative /uL (Negative) Urine RBC 1 /hpf (0 - 3) Urine Microscopic WBC 1 /HPF (0-3) Urine Squamous Epithelial Cells Few /hpf (<5) Urine Bacteria None seen /hpf (None Seen) Urine Mucus Few (None Seen) Urine Glucose Normal mg/dL (Normal) Labs and/or images reviewed: Labs reviewed by me, Image(s) reviewed by me Assessment/Plan Assessment/Plan Near syncope CT head negative, Neurology consult appreciated, cardiology consult appreciated, echocardiogram 50 %t ejection fraction, carotid ultrasound negative, MRI brain negative , Cardiolite stress test positive, left heart catheterization by Dr. Parker 04/11/2025 shows no significant coronary artery disease Chest pain coronary artery disease ruled out Hypertension Hypercholesterolemia Hyperkalemia resolved Generalized weakness Acute respiratory distress chest x-ray normal History of sleep apnea Plan discussed with: Patient My Orders Orders - HANNA RAYMOND MD Procedure Category Date Status Time PTPTT LAB 04/11/25 Logged 04:00 Type And Screen BBK 04/11/25 Logged 04:00 Date of Service: Apr 11, 2025 Billing Provider: HANNA RAYMOND MD Common Visit Codes: [id number] INP/OBS CARE(HIGH) HANNA RAYMOND MD Apr 11, 2025 11:32
[2025-04-11] MEDS ORDERED: METO-158 PO (11:34)
[2025-04-11] MEDS ORDERED: ATOR20TA PO (11:34)
[2025-04-11] MEDS ORDERED: MECL25CH85 PO (11:34)
--- NOTE | 2025-04-11 11:41 | DVHDS2 ---
Discharge Summary Date of Admission Apr 06, 2025 at 14:25 Date of Discharge: Apr 11, 2025 Admitting Diagnosis Near-syncope Wounds: Left heart catheterization Labs/Diagnostic Data: Laboratory Results Test 04/08/25 11:30 04/07/25 05:43 04/06/25 13:16 04/06/25 09:00 Hemoglobin A1c 5.2 % A1C (<5.7) Triglycerides Level 150 mg/dL (< 150) Cholesterol Level 173 mg/dL (< 200) LDL Cholesterol 118 mg/dL (< 100) HDL Cholesterol 31 mg/dL (40-59) Thyroid Stimulating Hormone (TSH) 2.98 uIU/mL (0.55-4.78) White Blood Count 5.9 10^3/uL (4.4-10.8) Red Blood Count 5.71 10^6/uL (4.5-5.90) Hemoglobin 16.4 g/dL (13.5-17.5) Hematocrit 47.4 % (41.0-53.0) Mean Corpuscular Volume 83.0 fL (80.0-100.0) Mean Corpuscular Hemoglobin 28.7 pg (28.0-32.0) Mean Corpuscular Hemoglobin Concent 34.6 g/dL (32.0-36.0) Red Cell Distribution Width 15.1 % (11.8-14.3) Platelet Count 143 10^3/uL (140-450) Mean Platelet Volume 7.9 fL (6.9-10.8) Neutrophils (%) (Auto) 68.1 % (37.0-80.0) Lymphocytes (%) (Auto) 22.4 % (10.0-50.0) Monocytes (%) (Auto) 6.2 % (0.0-12.0) Eosinophils (%) (Auto) 3.0 % (0.0-7.0) Basophils (%) (Auto) 0.3 % (0.0-2.0) Neutrophils # (Auto) 4.0 10 ^3/uL (1.6-8.6) Lymphocytes # (Auto) 1.3 10 ^3/uL (0.4-5.4) Monocytes # (Auto) 0.4 10 ^3/uL (0-1.3) Eosinophils # (Auto) 0.2 10 ^3/uL (0-0.8) Basophils # (Auto) 0 10 ^3/uL (0-0.2) Nucleated Red Blood Cells 0.2 % Sodium Level 139 mmol/L (136-145) Potassium Level 4.1 mmol/L (3.5-5.1) Chloride Level 103 mmol/L (98-107) Carbon Dioxide Level 26 mmol/L (20-31) Anion Gap 10 (5-15) Blood Urea Nitrogen 13 mg/dL (9-23) Creatinine 1.06 mg/dL (0.700-1.30) Glomerular Filtration Rate Calc 78 mL/min (>90) BUN/Creatinine Ratio 12.3 (10.0-20.0) Serum Glucose 107 mg/dL (74-106) Calcium Level 9.0 mg/dL (8.7-10.4) Total Bilirubin 0.8 mg/dL (0.2-1.0) Aspartate Amino Transferase (AST) 19 U/L (13-40) Alanine Aminotransferase (ALT) 28 U/L (7-40) Alkaline Phosphatase 96 U/L (46-116) Total Protein 6.6 g/dL (5.7-8.2) Albumin 4.2 g/dL (3.2-4.8) Troponin I High Sensitivity < 3 ng/L (</=54) Urine Color Light-yellow (Yellow) Urine Clarity Clear (Clear) Urine pH 5.5 (5.0-9.0) Urine Specific [place] 1.023 (1.001-1.035) Urine Protein Negative (Negative) Urine Ketones Negative (Negative) Urine Blood Trace /uL (Negative) Urine Nitrite Negative (Negative) Urine Bilirubin Negative (Negative) Urine Urobilinogen Normal mg/dL (Negative) Urine Leukocyte Esterase Negative /uL (Negative) Urine RBC 1 /hpf (0 - 3) Urine Microscopic WBC 1 /HPF (0-3) Urine Squamous Epithelial Cells Few /hpf (<5) Urine Bacteria None seen /hpf (None Seen) Urine Mucus Few (None Seen) Urine Glucose Normal mg/dL (Normal) Other Laboratory Tests 04/07/25 05:43 Brief Hx & Hospital Course: 64-year-old male with a history of hypertension hypercholesterolemia sleep apnea came in for near syncopal episode. CT head was negative neurology consult by Dr. Padilla echo 50 percent ejection fraction carotid ultrasound negative MRI brain negative Cardiolite stress test was positive left heart catheterization by Dr. Parker negative for coronary artery disease patient feels fine and being discharged home. Prescription for Antivert metoprolol Lipitor transmitted to pharmacy he will continue aspirin he will follow up with the Dr. Parker and Dr. Padilla Consults/Reason for consult Cardiology Dr. Parker Neurology Dr. Padilla Operations or Procedures CT head MRI brain Left Heart catheterization Echocardiogram Cardiolite stress test Condition at Discharge: Fair Final Diagnosis/Problems List Near syncope CT head negative, Neurology consult appreciated, cardiology consult appreciated, echocardiogram 50 %t ejection fraction, carotid ultrasound negative, MRI brain negative , Cardiolite stress test positive, left heart catheterization by Dr. Praker 04/11/2025 shows no significant coronary artery disease Chest pain coronary artery disease ruled out Hypertension Hypercholesterolemia Hyperkalemia resolved Generalized weakness Acute respiratory distress chest x-ray normal History of sleep apnea Discharge Disposition: Home Discharge Instruct/Medications Diet: Cardiac 2g Na,low cholest Activity: Light activity Follow Up/Referral: Follow up with your primary Dr in one week Follow up with the Cardiology Dr. Parker in two weeks Follow up with the Neurology Dr. Padilla in two weeks Resume all previous home medications Medications: Lipitor Metoprolol Antivert Transmitted to [facility] pharmacy 39 (Time taken for discharge summary 39 minutes) Discharge Statement: "Patient was advised to return to the ER or call 911 if any headaches, dizziness, shortness of breath, chest pain, abdominal pain, bleeding, fevers, or worsening of medical condition. Patient was counseled about treatment plan, medications, possible side effects, patientverbalized understanding. All questions were answered to the best of my ability. This discharge took greater then 30 minutes in planning, reviewing documentation, counseling the patient, and discussing with other team members." ASSESSMENT ASSESSMENT Hospital Course Improved Assessment Near syncope CT head negative, Neurology consult appreciated, cardiology consult appreciated, echocardiogram 50 %t ejection fraction, carotid ultrasound negative, MRI brain negative , Cardiolite stress test positive, left heart catheterization by Dr. Parker 04/11/2025 shows no significant coronary artery disease Chest pain coronary artery disease ruled out Hypertension Hypercholesterolemia Hyperkalemia resolved Generalized weakness Acute respiratory distress chest x-ray normal History of sleep apnea Date of Service: Apr 11, 2025 Billing Provider: HANNA RAYMOND MD Common Visit Codes: [id number]/[id number] DISCH DAY >30min HANNA RAYMOND MD Apr 11, 2025 11:41
[2025-04-11 12:39] LABS: Basophils # (auto) 0 10 ^3/uL (0-0.2); Hemoglobin 17.9 g/dL (13.5-17.5); Mean Corpuscular Volume 82.3 fL (80.0-100.0); Monocytes # (auto) 0.1 10 ^3/uL (0-1.3); Platelet Count (auto) 145 10^3/uL (140-450); Red Cell Distribution Width 15.6 % (11.8-14.3); White Blood Cell 8.1 10^3/uL (4.4-10.8)
[2025-04-11 12:41] LABS: Basophils % (auto) 0.1 % (0.0-2.0); Eosinophils # (auto) 0 10 ^3/uL (0-0.8); Eosinophils % (auto) 0.5 % (0.0-7.0); Hematocrit 50.6 % (41.0-53.0); Lymphocytes # (auto) 0.7 10 ^3/uL (0.4-5.4); Lymphocytes % (auto) 8.8 % (10.0-50.0); Mean Corpuscular Hemoglobin 29.1 pg (28.0-32.0); Mean Corpuscular Hgb Conc. 35.4 g/dL (32.0-36.0); Monocytes % (auto) 1.2 % (0.0-12.0); Neutrophils # (auto) 7.3 10 ^3/uL (1.6-8.6); Neutrophils % (auto) 89.4 % (37.0-80.0); Red Blood Cells 6.14 10^6/uL (4.5-5.90)
[2025-04-11 12:43] LABS: Chloride 101 mmol/L (98-107); Sodium 137 mmol/L (136-145)
[2025-04-11 12:44] LABS: Anion Gap 7 (5-15); Calcium 9.9 mg/dL (8.7-10.4); Carbon Dioxide 29 mmol/L (20-31)
[2025-04-11 12:49] LABS: BUN/Creatinine Ratio 12.8 (10.0-20.0); Blood Urea Nitrogen 15 mg/dL (9-23); Glucose 118 mg/dL (74-106); Potassium 5.2 mmol/L (3.5-5.1)
[2025-04-11 12:57] LABS: INR 1.03 (0.9-1.15); Partial Thromboplastin Time 32.8 SEC (24.5-34.5); Prothrombin Time 10.9 sec (9.3-11.8)
== END 2025-04-11 16:30 | disposition home or self-care (01) | DRG 287 ==
LOC: EDUNIT# 08:07 → ER 08:07 → EDBD 08:07 → OVERFLOW 14:25 → TELE-CENTR 17:55 → TELE-EAST 04-11 02:22
PROVIDERS: ADMIT Family Medicine; ATTEND Family Medicine
PROC: 5A09357 Assistance with Respiratory Ventilation, Less than 24 Consecutive Hours, Continuous Positive Airway Pressure (ICD-10-PCS; 2025-04-06)
PROC: B211YZZ Fluoroscopy of Multiple Coronary Arteries using Other Contrast (ICD-10-PCS; principal; 2025-04-11)
PROC: 4A023N7 Measurement of Cardiac Sampling and Pressure, Left Heart, Percutaneous Approach (ICD-10-PCS; 2025-04-11)
DX: I24.9 Acute ischemic heart disease, unspecified (principal); E87.5 Hyperkalemia; R55 Syncope and collapse; R06.03 Acute respiratory distress; I10 Essential (primary) hypertension; E66.01 Morbid (severe) obesity due to excess calories; E78.00 Pure hypercholesterolemia, unspecified; K76.0 Fatty (change of) liver, not elsewhere classified; G47.33 Obstructive sleep apnea (adult) (pediatric); Z91.041 Radiographic dye allergy status; Z82.5 Family history of asthma and other chronic lower respiratory diseases; Z79.899 Other long term (current) drug therapy; Z87.442 Personal history of urinary calculi; Z79.82 Long term (current) use of aspirin; Z83.3 Family history of diabetes mellitus
CPT/HCPCS: 36415; 70450; 70551; 71045; 78452; 80048; 80053; 80061; 81001; 83036; 84443; 84484; 85025; 85610; 85730; 86850; 86900; 86901; 93005; 93017; 93306; 93458; 93886; 99152; 99291; G0378; J2250; J3490; Q9967